=== PATIENT | male | born 1930 | race Caucasian/White ===

== ENCOUNTER 2016-11-17 03:39 | Inpatient (IN) | payer MEDICARE, BC ==
[2016-11-17] MEDS ORDERED: Ondansetron 4 MG/2 ML SDV IVPUSH ONE (03:54)
[2016-11-17] MEDS ORDERED: Sodium Chloride 0.9% 1,000 ML IV SCH ×2 (04:00→05:45)
[2016-11-17] MEDS ORDERED: Sodium Chloride 0.9% 10 ML Syringe FLUSH PRN (04:00)
[2016-11-17] MEDS ORDERED: Acetaminophen 325 MG Tab PO ONE (04:47)
[2016-11-17] MEDS ORDERED: Sodium Chloride 0.9% 500 ML IV ONE (04:50)
[2016-11-17] MEDS ORDERED: Ondansetron 4 MG Tab.DIS PO PRN ×3 (05:29→09:37)
[2016-11-17] MEDS ORDERED: Albuterol/Ipratropium 3.0-0.5 MG/3 ML Neb Soln NEB PRN (05:29)
[2016-11-17] MEDS ORDERED: Ondansetron 4 MG/2 ML SDV IV PRN (05:29)
[2016-11-17] MEDS ORDERED: Acetaminophen 325 MG Tab PO PRN (05:29)
[2016-11-17] MEDS ORDERED: Polyethylene Glycol 3350 Powder 17 GM Packet PO PRN (05:29)
[2016-11-17] MEDS ORDERED: Temazepam 15 MG Cap PO PRN (05:29)
[2016-11-17] MEDS ORDERED: Azithromycin 500 MG in Sodium Chloride 0.9% 250 ML IV SCH (06:00)
[2016-11-17] MEDS ORDERED: cefTRIAXone 1 GM AdvVial IV ONE (06:05)
[2016-11-17] MEDS ORDERED: cefTRIAXone 1,000 MG in Sodium Chloride 0.9% 50 ML IV SCH (07:00)
[2016-11-17] MEDS: cefTRIAXone 1 GM in Sodium Chloride 0.9% 50 ML IV SCH (07:14)
[2016-11-17] MEDS ORDERED: Nitroglycerin 0.4 MG Tab.SL SL PRN (08:58)
[2016-11-17] MEDS ORDERED: Fluticasone Propionate Nasal Spray 16 GM Bottle NASBOTH PRN (08:58)
[2016-11-17] MEDS ORDERED: Morphine 15 MG Tab PO PRN (08:58)
[2016-11-17] MEDS ORDERED: Apixaban 2.5 MG Tab PO SCH (09:00)
--- NOTE | 2016-11-17 09:07 | PCM.HP ---
H&P History of Present Illness - General Date of Service: 11/17/16 Admit Problem/Dx: Admission Diagnosis/Problem Admission Diagnosis/Problem Pneumonia Source of Information: Patient History Limitations: Reports: No limitations - History of Present Illness Initial Comments - Free Text/Narative: This is an 86-year-old male patient one day history of cough that's productive, chills and rigors. He denies fevers but states his said he was warm. He was brought to the ER and found to have a pneumonia in the right middle lobe. And he was admitted for IV therapy. He denies chest pain, shortness of breath, nasal congestion, sore throat, ear pain, headaches. He has a history of constipation recently. He has a very bad low back and surgeon refused to operate on it again because he had lots of complications. So he was seen in the pain clinic and put morphine. He is on a Amitza for 3 days. - Related Data Allergies/Adverse Reactions: Allergies Allergy/AdvReac Type Severity Reaction Status Date / Time acetaminophen [From Roxicet] Allergy Nausea and Verified 11/17/16 05:35 Vomiting atorvastatin Allergy Muscle Verified 11/17/16 05:35 Aches levofloxacin [From Levaquin] Allergy Hives Verified 11/17/16 05:35 oxycodone [From Roxicet] Allergy Nausea and Verified 11/17/16 05:35 Vomiting Penicillins Allergy Hives Verified 11/17/16 05:35 Home Medications: Home Meds Cholecalciferol (Vitamin D3) [Vitamin D3] 1,000 units PO DAILY 04/26/14 [History ] Multivitamin [Daily Vitamin] 1 each PO DAILY 04/26/14 [History] Fluticasone Propionate [Flonase] 1 spray NASBOTH BID PRN 10/18/15 [History] Ferrous Sulfate 325 mg PO BID 06/07/16 [History] Finasteride [Proscar] 5 mg PO DAILY 06/07/16 [History] Tamsulosin [Flomax] 0.4 mg PO DAILY 06/07/16 [History] Apixaban [Eliquis] 5 mg PO BID 06/18/16 [History] Digoxin 125 mcg PO DAILY 06/18/16 [History] Metoprolol Succinate 12.5 mg PO DAILY 06/18/16 [History] Nitroglycerin [Nitrostat] 0.4 mg SL Q5M PRN 06/18/16 [History] Pravastatin [Pravachol] 80 mg PO BEDTIME 06/18/16 [History] Docusate Sodium [Docu 50 MG/5 ML Liquid] 100 mg PO BEDTIME 11/09/16 [History] Eszopiclone [Lunesta] 2 mg PO BEDTIME 11/09/16 [History] Morphine 15 mg PO Q4H PRN 11/09/16 [History] Morphine [MS Contin] 15 mg PO BID 11/09/16 [History] Omeprazole 20 mg PO 1700 11/09/16 [History] Ondansetron [Zofran ODT] 4 mg PO TIDAC PRN 11/09/16 [History] Lubiprostone [Amitiza] 24 mcg PO BIDMEALS #60 cap 11/10/16 [Rx] Past Medical History HEENT History: Reports: Cataract, Impaired vision, Sinusitis, Other (see below) Other HEENT History: astigmatism, chronic rhinitis Cardiovascular History: Reports: Afib, CAD, Heart murmur, High cholesterol, Hypertension, ND, Stents, Other (see below) Other Cardiovascular History: aortic insufficiency, hyper lipidemia, NSTEMI Respiratory History: Reports: Pneumonia, recurrent, Other (see below) Other Respiratory History: CHACON Gastrointestinal History: Reports: Colon polyp, GERD, Other (see below) Other Gastrointestinal History: colitis, dysphagia Genitourinary History: Reports: Renal calculus, UTI, recurrent, Other (see below ) Other Genitourinary History: bladder outlet obstruction, Musculoskeletal History: Reports: Arthritis, Other (see below) Other Musculoskeletal History: lumbar stenosis, rotator cuff tear, SI joint dystruction, spondylosis of lumbar region, chronic left hip pain, DJD Neurological History: Reports: Neuropathy, peripheral, Other (see below) Other Neuro History: chronic fatigue, menieres syndrome Psychiatric History: Reports: Depression Hematologic History: Reports: Anemia, Blood transfusion(s) Dermatologic History: Reports: Other (see below) Other Dermatologic History: actinic keratosis, siborrheic keratoses - Infectious Disease History Infectious Disease History: Reports: Chicken pox, Mumps - Past Surgical History HEENT Surgical History: Reports: Eye surgery, Other (see below) Other HEENT Surgeries/Procedures: sinus surgery Cardiovascular Surgical History: Reports: Percutaneous transluminal angioplasty Respiratory Surgical History: Reports: None GI Surgical History: Reports: Colonoscopy Male Surgical History: Reports: Vasectomy Neurological Surgical History: Reports: Lumbar spine Other Neurological Surgeries/Procedures: 05/31/16 Musculoskeletal Surgical History: Reports: Shoulder surgery, Other (see below) Other Musculoskeletal Surgeries/Procedures:: back surgury 06/03/16 Social & Family History - Family History Family Medical History: Noncontributory - Tobacco Use Smoking Status *Q: Never Smoker Used Tobacco, but Quit: Yes Month Tobacco Last Used: 1950 Second Hand Smoke Exposure: No - Caffeine Use Caffeine Use: Reports: Coffee Caffeine Use Comment: 2-3cups per day - Alcohol Use Days Per Week of Alcohol Use: 7 Number of Drinks Per Day: 1 Total Drinks Per Week: 7 Time of Last Drink: 21:00 - Recreational Drug Use Recreational Drug Use: No H&P Review of Systems - Review of Systems: Review Of Systems: See Below General: Reports: chills, weakness HEENT: Reports: no symptoms Pulmonary: Reports: cough, sputum. Denies: hemoptysis Cardiovascular: Reports: no symptoms Gastrointestinal: Reports: Constipation Genitourinary: Reports: no symptoms Musculoskeletal: Reports: no symptoms Skin: Reports: no symptoms Psychiatric: Reports: no symptoms Neurological: Reports: no symptoms Hematologic/Lymphatic: Reports: no symptoms Immunologic: Reports: no symptoms Exam - Exam Exam: See Below - Vital Signs Vital Signs: Last Vital Signs Temp 97.4 F 11/17/16 06:07 Pulse 82 11/17/16 06:07 Resp 18 11/17/16 06:07 BP 129/52 L 11/17/16 06:07 Pulse Ox 92 L 11/17/16 06:07 Weight: 179 lb 6 oz - Exam General: alert, oriented, cooperative HEENT: PERRLA, Conjunctiva clear, EACs clear, EOMI, Hearing intact, Mucosa moist & pink, Posterior pharynx clear, TMs clear Neck: supple, trachea midline, 2 Lungs: Clear to auscultation, Normal respiratory effort. No: Crackles, Rales, Rhonchi, Rub Cardiovascular: regular rate, irregular rhythm. No: systolic murmur, diastolic murmur Abdomen: normal bowel sounds, soft. No: organomegaly, guarding, rigidity, rebound, tenderness Back Exam: normal inspection Extremities: normal inspection. No: edema Skin: warm, dry, intact Neurological: normal speech, normal tone Neuro Extensive - Mental Status: alert, oriented x3, normal mood/affect, normal cognition Neuro Extensive - Motor, Sensory, Reflexes: normal gait Psychiatric: alert, normal affect, normal mood - Patient Data Lab Results last 24 hrs: Laboratory Results - last 24 hr 11/17/16 Range/Units 07:20 ABG pH 7.49 H (7.35-7.45) ABG pCO2 33 L (35-45) mmHg ABG pO2 120 H (83-108) mmHg ABG HCO3 24 (22-26) mmol/L ABG O2 Saturation 99 H (96-97) % ABG Base Excess 1.5 (-2-2) Chivo Test passed O2 Delivery Device Nasal cannula Oxygen Flow Rate 2 L Result Diagrams: 11/17/16 04:05 11/17/16 04:05 Yury Results last 24 hrs: Microbiology 11/17/16 07:31 Influenza Type A Antigen Screen - Final Nasopharyngeal Swab - Nare, Right NEGATIVE INFLUENZA A VIRUS AG Influenza Type B Antigen Screen - Final NEGATIVE INFLUENZA B VIRUS AG *Q Meaningful Use (ADM) - VTE *Q VTE Criteria *Q: - Stroke *Q Stroke Criteria *Q: - AMI *Q AMI Criteria *Q: - Problem List (1) Pneumonia SNOMED Code(s): 484884685 ICD Code: J18.9 - PNEUMONIA, UNSPECIFIED ORGANISM Status: Acute Current Visit: Yes Qualifiers: Laterality: right Lung location: middle lobe of lung (2) Constipation due to opioid therapy SNOMED Code(s): 459387373787094 ICD Code: K59.03 - DRUG INDUCED CONSTIPATION; T40.2X5A - ADVERSE EFFECT OF OTHER OPIOIDS, INITIAL ENCOUNTER Status: Acute Current Visit: No (3) Elevated LFTs SNOMED Code(s): 387833087 ICD Code: R94.5 - ABNORMAL RESULTS OF LIVER FUNCTION STUDIES Status: Acute Current Visit: Yes Problem List Initiated/Reviewed/Updated: Yes Orders Last 24hrs: Active Orders 24 hr Category Date Time Status Patient Status [ADT] Routine ADT 11/17/16 05:30 Active Cardiac Monitoring [RC] CONTINUOUS Care 11/17/16 05:32 Active Oxygen Therapy [RC] PRN Care 11/17/16 05:30 Active RT Aerosol Therapy [RC] ASDIRECTED Care 11/17/16 05:35 Active Up ad Claudia [RC] ASDIRECTED Care 11/17/16 05:29 Active VTE/DVT Education [RC] Per Unit Routine Care 11/17/16 05:30 Active Vital Signs [RC] Q4H Care 11/17/16 05:30 Active Regular Diet [DIET] Diet 11/17/16 Lunch Ordered MAGNESIUM [CHEM] AM Lab 11/18/16 05:11 Ordered Acetaminophen [Tylenol] Med 11/17/16 05:29 Active 650 mg PO Q4H PRN Albuterol/Ipratropium [DuoNeb 3.0-0.5 MG/3 ML] Med 11/17/16 05:29 Active 3 ml NEB QID PRN Apixaban [Eliquis] Med 11/17/16 09:00 Ordered 5 mg PO BID Apixaban [Eliquis] Med 11/17/16 09:00 Active 5 mg PO DAILY Azithromycin [Zithromax] 500 mg Med 11/17/16 08:00 Active Sodium Chloride 0.9% [Normal Saline] 250 ml IV Q24H Digoxin [Lanoxin] Med 11/17/16 09:00 Ordered 125 mcg PO DAILY Docusate Sodium [Docu 50 MG/5 ML Liquid] Med 11/17/16 21:00 Ordered 100 mg PO BEDTIME Docusate Sodium/Sennosides [Senna Plus] Med 11/17/16 09:15 Ordered 1 tab PO DAILY Eszopiclone [Lunesta] Med 11/17/16 21:00 Ordered 2 mg PO BEDTIME Ferrous Sulfate Med 11/17/16 09:00 Ordered 325 mg PO BID Finasteride [Proscar] Med 11/17/16 09:00 Ordered 5 mg PO DAILY Fluticasone Propionate [Flonase] Med 11/17/16 08:58 Ordered 1 spray NASBOTH BID PRN Lubiprostone [Amitiza] Med 11/17/16 18:00 Ordered 24 mcg PO BIDMEALS Metoprolol Succinate [Toprol XL] Med 11/17/16 09:00 Ordered 12.5 mg PO DAILY Morphine Med 11/17/16 08:58 Ordered 15 mg PO Q4H PRN Morphine [MS Contin] Med 11/17/16 09:00 Ordered 15 mg PO BID Multivitamins [Tab-A-Bryan] Med 11/17/16 09:00 Ordered 1 each PO DAILY Nitroglycerin [Nitrostat] Med 11/17/16 08:58 Ordered 0.4 mg SL Q5M PRN Omeprazole Med 11/17/16 17:00 Ordered 20 mg PO 1700 Ondansetron [Zofran ODT] Med 11/17/16 05:29 Active 4 mg PO Q4H PRN Ondansetron [Zofran ODT] Med 11/17/16 08:58 Ordered 4 mg PO TIDAC PRN Ondansetron [Zofran] Med 11/17/16 05:29 Active 4 mg IV Q4H PRN Polyethylene Glycol 3350 [MiraLAX] Med 11/17/16 05:29 Active 17 gm PO DAILY PRN Pravastatin [Pravachol] Med 11/17/16 21:00 Ordered 80 mg PO BEDTIME Sodium Chloride 0.9% [Normal Saline] 1,000 ml Med 11/17/16 05:45 Active IV ASDIRECTED Tamsulosin [Flomax] Med 11/17/16 09:00 Ordered 0.4 mg PO DAILY Temazepam [Restoril] Med 11/17/16 05:29 Active 15 mg PO BEDTIME PRN cefTRIAXone [Rocephin] 1 gm Med 11/17/16 06:00 Active Sodium Chloride 0.9% [Normal Saline] 50 ml IV Q24H Resuscitation Status Routine Resus Stat 11/17/16 05:29 Ordered Medication Orders Acetaminophen (Tylenol) 650 mg PO Q4H PRN PRN Reason: Pain (Mild 1-3)/fever Albuterol/Ipratropium (Duoneb 3.0-0.5 Mg/3 Ml) 3 ml NEB QID PRN PRN Reason: Shortness Of Breath/wheezing Apixaban (Eliquis) 5 mg PO DAILY [facility] Digoxin (Lanoxin) 125 mcg PO DAILY [facility] Docusate Sodium (Docu 50 Mg/5 Ml Liquid) 100 mg PO BEDTIME [facility] Ferrous Sulfate (Ferrous Sulfate) 325 mg PO BID [facility] Finasteride (Proscar) 5 mg PO DAILY [facility] Fluticasone Propionate (Flonase) gm NASBOTH BID PRN PRN Reason: ALLERGIES/CONGESTION Sodium Chloride (Normal Saline) 1,000 mls @ 125 mls/hr IV ASDIRECTED ROSALIE Last Admin: 11/17/16 06:17 Dose: 150 mls/hr Azithromycin 500 mg/ Sodium (Chloride) 250 mls @ 250 mls/hr IV Q24H [facility] Ceftriaxone Sodium 1 gm/ (Sodium Chloride) 50 mls @ 100 mls/hr IV Q24H [facility] Last Admin: 11/17/16 07:14 Dose: Not Given Lubiprostone (Amitiza) 24 mcg PO BIDMEALS [facility] Metoprolol Succinate (Toprol Xl) 12.5 mg PO DAILY [facility] Morphine Sulfate (Ms Contin) 15 mg PO BID [facility] Morphine Sulfate (Morphine) 15 mg PO Q4H PRN PRN Reason: Pain Multivitamins/Minerals/Vitamin C (Tab-A-Bryan) tab PO DAILY [facility] Nitroglycerin (Nitrostat) 0.4 mg SL Q5M PRN PRN Reason: Chest Pain Non-Formulary Medication (Apixaban [Eliquis]) 5 mg PO BID [facility] Non-Formulary Medication (Eszopiclone [Lunesta]) 2 mg PO BEDTIME [facility] Omeprazole (Omeprazole) 20 mg PO 1700 [facility] Ondansetron HCl (Zofran Odt) 4 mg PO Q4H PRN PRN Reason: nausea, able to take PO Ondansetron HCl (Zofran) 4 mg IV Q4H PRN PRN Reason: Nausea/Vomiting Ondansetron HCl (Zofran Odt) 4 mg PO TIDAC PRN PRN Reason: Nausea Polyethylene Glycol (Miralax) 17 gm PO DAILY PRN PRN Reason: Constipation Pravastatin Sodium (Pravachol) 80 mg PO BEDTIME [facility] Sodium Chloride (Saline Flush) 10 ml FLUSH ASDIRECTED PRN PRN Reason: Keep Vein Open Tamsulosin HCl (Flomax) 0.4 mg PO DAILY [facility] Temazepam (Restoril) 15 mg PO BEDTIME PRN PRN Reason: Sleep Assessment/Plan Comment:: 1. Admit. 2. Discussed CODE STATUS they last a full code unless there is no hope. 3. Rocephin and Zithromax. 4. Up ad claudia. 5. Regular diet. 6. Atrial fib is under control so continue eloquence can stop telemetry. 7. Discuss workup for LFTs for the patient.
[2016-11-17] MEDS: Ferrous Sulfate 325 MG Tab PO SCH ×2 (09:44→20:58)
[2016-11-17] MEDS: Metoprolol Succinate 25 MG Tab.ER PO SCH (09:44)
[2016-11-17] MEDS: Multivitamin Tab PO SCH (09:44)
[2016-11-17] MEDS: Morphine 15 MG Tab.ER PO SCH ×2 (09:44→20:58)
[2016-11-17] MEDS: Finasteride 5 MG Tab PO SCH (09:44)
[2016-11-17] MEDS: Digoxin 125 MCG Tab PO SCH (09:45)
[2016-11-17] MEDS: Tamsulosin 0.4 MG Cap.ER PO SCH (09:45)
[2016-11-17] MEDS: Azithromycin 500 MG in Sodium Chloride 0.9% 250 ML IV SCH (10:07)
[2016-11-17] MEDS: Apixaban 5 MG Tab PO SCH ×2 (11:31→20:58)
[2016-11-17] MEDS ORDERED: Bisacodyl 10 MG Supp RECTAL PRN (12:00)
[2016-11-17] MEDS ORDERED: Omeprazole 20 MG Cap.CR PO SCH (17:00)
[2016-11-17] MEDS: Lubiprostone 24 MCG Cap PO SCH (17:44)
[2016-11-17] MEDS ORDERED: ESZOPICLONE 2 MG PO SCH (21:00)
[2016-11-17] MEDS ORDERED: Docusate Sodium 100 MG Cap PO SCH (21:00)
[2016-11-17] MEDS ORDERED: Simvastatin 40 MG Tab PO SCH (21:00)
[2016-11-18] MEDS: cefTRIAXone 1 GM in Sodium Chloride 0.9% 50 ML IV SCH (05:58)
[2016-11-18] MEDS: Azithromycin 500 MG in Sodium Chloride 0.9% 250 ML IV SCH (08:04)
[2016-11-18] MEDS: Lubiprostone 24 MCG Cap PO SCH (08:08)
--- NOTE | 2016-11-18 08:10 | PCM.PN ---
- General Info Date of Service: 11/18/16 Admission Dx/Problem (Free Text): Patient was without complaints. He denies cough, shortness of breath, weakness , dizziness, fevers, chills, riders. There's a report that his oxygen is about 90% during the day and goes to about 88% at night. - Patient Data Vitals - most recent: Last Vital Signs Temp 96.8 F 11/18/16 08:00 Pulse 71 11/18/16 08:00 Resp 18 11/18/16 08:00 BP 117/58 L 11/18/16 08:00 Pulse Ox 94 L 11/18/16 08:00 Weight - most recent: 179 lb 6 oz I&O - last 24 hours: Intake & Output 11/17/16 11/18/16 11/18/16 22:59 06:59 14:59 Intake Total 317 55 Balance 317 55 Lab Results last 24 hrs: Laboratory Results - last 24 hr 11/18/16 11/18/16 11/18/16 Range/Units 06:55 06:55 06:55 WBC 8.2 (4.5-12.0) X10-3/uL RBC 3.38 L (4.30-5.75) x10(6)uL Hgb 10.0 L (11.5-15.5) g/dL Hct 31.1 (30.0-51.3) % MCV 92.0 (80-96) fL MCH 29.5 (27.7-33.6) pg MCHC 32.1 L (32.2-35.4) g/dL RDW 12.8 (11.5-15.5) % Plt Count 139 (125-369) X10(3)uL MPV 9.8 (7.4-10.4) fL Neut % (Auto) 64.1 (46-82) % Lymph % (Auto) 24.6 (13-37) % [place] % (Auto) 9.1 (4-12) % Eos % (Auto) 2 (1.0-5.0) % Baso % (Auto) 0 (0-2) % Neut # 5.3 (1.6-8.3) # Lymph # 2.0 (0.6-5.0) # [place] # 0.7 (0.0-1.3) # Eos # 0.2 (0.0-0.8) # Baso # 0.0 (0.0-0.2) # Sodium 137 (135-145) mmol/L Potassium 3.8 (3.5-5.3) mmol/L Chloride 102 (100-110) mmol/L Carbon Dioxide 29 (23-29) mmol/L BUN 19 D (8-23) mg/dL Creatinine 0.8 (0.6-1.3) mg/dL Est Cr Clr Drug Dosing 66.28 mL/min Estimated GFR (MDRD) > 60 (>60) BUN/Creatinine Ratio 23.8 H (9-20) Glucose 105 (80-116) mg/dL Calcium 7.9 L (8.6-10.2) mg/dL Magnesium 1.7 L (1.8-2.5) mg/dL Total Bilirubin 1.1 (0.1-1.3) mg/dL AST 21 D (5-27) IU/L ALT 20 D (14-26) IU/L Alkaline Phosphatase 66 (56-112) IU/L Total Protein 5.6 L (6.0-8.0) g/dL Albumin 2.8 L (3.2-4.6) g/dL Globulin 2.8 g/dL Albumin/Globulin Ratio 1.0 Yury Results last 24 hrs: Microbiology 11/17/16 07:31 Influenza Type A Antigen Screen - Final Nasopharyngeal Swab - Nare, Right NEGATIVE INFLUENZA A VIRUS AG Influenza Type B Antigen Screen - Final NEGATIVE INFLUENZA B VIRUS AG Med Orders - Current: Current Medications Acetaminophen (Tylenol) 650 mg PO Q4H PRN PRN Reason: Pain (Mild 1-3)/fever Albuterol/Ipratropium (Duoneb 3.0-0.5 Mg/3 Ml) 3 ml NEB QID PRN PRN Reason: Shortness Of Breath/wheezing Last Admin: 11/17/16 14:57 Dose: 3 ml Apixaban (Eliquis) 5 mg PO BID [facility] Last Admin: 11/17/16 20:58 Dose: 5 mg Bisacodyl (Dulcolax) 10 mg RECTAL DAILY PRN PRN Reason: Constipation Digoxin (Lanoxin) 125 mcg PO DAILY [facility] Last Admin: 11/17/16 09:45 Dose: 125 mcg Docusate Sodium (Colace) 100 mg PO BEDTIME [facility] Last Admin: 11/17/16 20:58 Dose: 100 mg Ferrous Sulfate (Ferrous Sulfate) 325 mg PO BID [facility] Last Admin: 11/17/16 20:58 Dose: 325 mg Finasteride (Proscar) 5 mg PO DAILY [facility] Last Admin: 11/17/16 09:44 Dose: 5 mg Fluticasone Propionate (Flonase) 0 gm NASBOTH BID PRN PRN Reason: ALLERGIES/CONGESTION Azithromycin 500 mg/ Sodium (Chloride) 250 mls @ 250 mls/hr IV Q24H [facility] Last Admin: 11/18/16 08:04 Dose: 250 mls/hr Ceftriaxone Sodium 1 gm/ (Sodium Chloride) 50 mls @ 100 mls/hr IV Q24H [facility] Last Admin: 11/18/16 05:58 Dose: 100 mls/hr Lubiprostone (Amitiza) 24 mcg PO BIDMEALS [facility] Last Admin: 11/17/16 17:44 Dose: 24 mcg Metoprolol Succinate (Toprol Xl) 12.5 mg PO DAILY [facility] Last Admin: 11/17/16 09:44 Dose: 12.5 mg Morphine Sulfate (Ms Contin) 15 mg PO BID [facility] Last Admin: 11/17/16 20:58 Dose: 15 mg Morphine Sulfate (Morphine) 15 mg PO Q4H PRN PRN Reason: Pain Multivitamins/Minerals/Vitamin C (Tab-A-Bryan) 1 tab PO DAILY [facility] Last Admin: 11/17/16 09:44 Dose: 1 tab Nitroglycerin (Nitrostat) 0.4 mg SL Q5M PRN PRN Reason: Chest Pain Omeprazole (Omeprazole) 20 mg PO DAILY@1700 [facility] Last Admin: 11/17/16 17:44 Dose: 20 mg Ondansetron HCl (Zofran) 4 mg IV Q4H PRN PRN Reason: Nausea/Vomiting Ondansetron HCl (Zofran Odt) 4 mg PO TIDAC PRN PRN Reason: Nausea Polyethylene Glycol (Miralax) 17 gm PO DAILY PRN PRN Reason: Constipation Senna/Docusate Sodium (Senna Plus) 1 tab PO DAILY [facility] Last Admin: 11/17/16 09:45 Dose: 1 tab Simvastatin (Zocor) 40 mg PO BEDTIME [facility] Last Admin: 11/17/16 20:58 Dose: 40 mg Tamsulosin HCl (Flomax) 0.4 mg PO DAILY [facility] Last Admin: 11/17/16 09:45 Dose: 0.4 mg Temazepam (Restoril) 15 mg PO BEDTIME PRN PRN Reason: Sleep Last Admin: 11/17/16 20:57 Dose: 15 mg Discontinued Medications Acetaminophen (Tylenol) 975 mg PO NOW ONE Stop: 11/17/16 04:48 Last Admin: 11/17/16 05:04 Dose: 975 mg Apixaban (Eliquis) 5 mg PO DAILY [facility] Last Admin: 11/17/16 09:36 Dose: Not Given Ceftriaxone Sodium (Rocephin) Confirm Administered Dose 1 gm IV .STK-MED ONE Stop: 11/17/16 06:06 Last Admin: 11/17/16 06:12 Dose: 1 gm Sodium Chloride (Normal Saline) 1,000 mls @ 500 mls/hr IV ASDIRECTED [facility] Last Admin: 11/17/16 04:07 Dose: 500 mls/hr Sodium Chloride (Normal Saline) 500 mls @ 600 mls/hr IV .BOLUS ONE Stop: 11/17/16 05:39 Last Admin: 11/17/16 07:26 Dose: Not Given Sodium Chloride (Normal Saline) 1,000 mls @ 125 mls/hr IV ASDIRECTED [facility] Stop: 11/17/16 16:45 Last Admin: 11/17/16 06:17 Dose: 150 mls/hr Non-Formulary Medication (Eszopiclone [Lunesta]) 2 mg PO BEDTIME [facility] Ondansetron HCl (Zofran) 4 mg IVPUSH ONETIME ONE Stop: 11/17/16 03:55 Last Admin: 11/17/16 04:09 Dose: 4 mg Ondansetron HCl (Zofran Odt) 4 mg PO Q4H PRN PRN Reason: nausea, able to take PO Ondansetron HCl (Zofran Odt) 4 mg PO TIDAC PRN PRN Reason: Nausea Sodium Chloride (Saline Flush) 10 ml FLUSH ASDIRECTED PRN PRN Reason: Keep Vein Open - Exam General: alert, oriented, cooperative Neck: supple Lungs: Clear to auscultation, Normal respiratory effort. No: Crackles, Rales, Rhonchi Cardiovascular: regular rate, regular rhythm. No: no murmurs Extremities: no edema - Problem List & Annotations (1) Pneumonia SNOMED Code(s): 821669914 Code(s): J18.9 - PNEUMONIA, UNSPECIFIED ORGANISM Status: Acute Current Visit: Yes Qualifiers: Laterality: right Lung location: middle lobe of lung (2) Constipation due to opioid therapy SNOMED Code(s): 601260245720405 Code(s): K59.03 - DRUG INDUCED CONSTIPATION; T40.2X5A - ADVERSE EFFECT OF OTHER OPIOIDS, INITIAL ENCOUNTER Status: Acute Current Visit: No (3) Elevated LFTs SNOMED Code(s): 604528681 Code(s): R94.5 - ABNORMAL RESULTS OF LIVER FUNCTION STUDIES Status: Acute Current Visit: Yes - Problem List Review Problem List Initiated/Reviewed/Updated: Yes - My Orders Last 24 Hours: My Active Orders 11/17/16 08:58 Fluticasone Propionate [Flonase] 0 gm NASBOTH BID PRN Morphine 15 mg PO Q4H PRN Nitroglycerin [Nitrostat] 0.4 mg SL Q5M PRN 11/17/16 09:00 Apixaban [Eliquis] 5 mg PO BID Digoxin [Lanoxin] 125 mcg PO DAILY Ferrous Sulfate 325 mg PO BID Finasteride [Proscar] 5 mg PO DAILY Metoprolol Succinate [Toprol XL] 12.5 mg PO DAILY Morphine [MS Contin] 15 mg PO BID Multivitamins [Tab-A-Bryan] 1 tab PO DAILY Tamsulosin [Flomax] 0.4 mg PO DAILY 11/17/16 09:15 Docusate Sodium/Sennosides [Senna Plus] 1 tab PO DAILY 11/17/16 09:37 Ondansetron [Zofran ODT] 4 mg PO TIDAC PRN 11/17/16 12:00 Bisacodyl [Dulcolax] 10 mg RECTAL DAILY PRN 11/17/16 16:45 Convert IV to Saline Lock [OM.PC] Routine 11/17/16 16:50 Convert IV to Saline Lock [OM.PC] Routine 11/17/16 17:00 Omeprazole 20 mg PO DAILY@1700 11/17/16 18:00 Lubiprostone [Amitiza] 24 mcg PO BIDMEALS 11/17/16 21:00 Docusate Sodium [Colace] 100 mg PO BEDTIME Simvastatin [Zocor] 40 mg PO BEDTIME 11/17/16 Lunch Regular Diet [DIET] 11/18/16 05:41 Oxygen Therapy [RC] ASDIRECTED - Plan Plan:: 1. discharge to home. 2. Zithromax and doxycycline home meds. 3. Recheck in 2 weeks with CBC, Chem-12 before the appointment.
--- NOTE | 2016-11-18 08:21 | PCM.DCSUM1 ---
Discharge Summary - Hospital Course Free Text/Narrative:: Hospital course-patient was admitted placed on Rocephin and Zithromax IV. By the next day he had no chills or rigers. He required a little oxygen at night because his O2 went to about 80%. During the day he was over 91% and higher. No cuff, no shortness of breath or chest pain. His white count went down the next day his LFTs were somewhat elevated. LFTs were not investigated at this visit. Brief History: This is an 86-year-old male patient one day history of cough that 's productive, chills and rigors. He denies fevers but states his said he was warm. He was brought to the ER and found to have a pneumonia in the right middle lobe. And he was admitted for IV therapy. He denies chest pain, shortness of breath, nasal congestion, sore throat, ear pain, headaches. He has a history of constipation recently. He has a very bad low back and surgeon refused to operate on it again because he had lots of complications. So he was seen in the pain clinic and put morphine. He is on a Amitza for 3 days. - Discharge Data Discharge Date: 11/18/16 Discharge Disposition: Home, Self-Care 01 Condition: Good - Discharge Diagnosis/Problem(s) (1) Pneumonia SNOMED Code(s): 837022398 ICD Code: J18.9 - PNEUMONIA, UNSPECIFIED ORGANISM Status: Acute Current Visit: Yes Qualifiers: Laterality: right Lung location: middle lobe of lung (2) Constipation due to opioid therapy SNOMED Code(s): 057169147456949 ICD Code: K59.03 - DRUG INDUCED CONSTIPATION; T40.2X5A - ADVERSE EFFECT OF OTHER OPIOIDS, INITIAL ENCOUNTER Status: Acute Current Visit: No (3) Elevated LFTs SNOMED Code(s): 275452032 ICD Code: R94.5 - ABNORMAL RESULTS OF LIVER FUNCTION STUDIES Status: Acute Current Visit: Yes - Patient Summary/Data Operative Procedure(s) Performed: c scope with bx - Patient Instructions Diet: Regular Diet as Tolerated Activity: As Tolerated Driving: May Drive Today Showering/Bathing: May Shower Notify Provider of: Fever Other/Special Instructions: 1. Recheck with Dr. Adkins in 2 weeks. 2. CBC and Chem-12 before the appointment in 2 weeks. - Discharge Plan Prescriptions/Med Rec: Azithromycin [Zithromax] 250 mg PO DAILY #3 tablet Doxycycline [Vibramycin] 100 mg PO BID #20 cap Sennosides/Docusate Sodium [Senna-S] 1 each PO DAILY #30 tablet Home Medications: Home Meds Cholecalciferol (Vitamin D3) [Vitamin D3] 1,000 units PO DAILY 04/26/14 [History ] Multivitamin [Daily Vitamin] 1 each PO DAILY 04/26/14 [History] Fluticasone Propionate [Flonase] 1 spray NASBOTH BID PRN 10/18/15 [History] Ferrous Sulfate 325 mg PO BID 06/07/16 [History] Finasteride [Proscar] 5 mg PO DAILY 06/07/16 [History] Tamsulosin [Flomax] 0.4 mg PO DAILY 06/07/16 [History] Apixaban [Eliquis] 5 mg PO BID 06/18/16 [History] Digoxin 125 mcg PO DAILY 06/18/16 [History] Metoprolol Succinate 12.5 mg PO DAILY 06/18/16 [History] Nitroglycerin [Nitrostat] 0.4 mg SL Q5M PRN 06/18/16 [History] Pravastatin [Pravachol] 80 mg PO BEDTIME 06/18/16 [History] Docusate Sodium [Docu 50 MG/5 ML Liquid] 100 mg PO BEDTIME 11/09/16 [History] Eszopiclone [Lunesta] 2 mg PO BEDTIME 11/09/16 [History] Morphine 15 mg PO Q4H PRN 11/09/16 [History] Morphine [MS Contin] 15 mg PO BID 11/09/16 [History] Omeprazole 20 mg PO 1700 11/09/16 [History] Ondansetron [Zofran ODT] 4 mg PO TIDAC PRN 11/09/16 [History] Lubiprostone [Amitiza] 24 mcg PO BIDMEALS #60 cap 11/10/16 [Rx] Azithromycin [Zithromax] 250 mg PO DAILY #3 tablet 11/18/16 [Rx] Doxycycline [Vibramycin] 100 mg PO BID #20 cap 11/18/16 [Rx] Sennosides/Docusate Sodium [Senna-S] 1 each PO DAILY #30 tablet 11/18/16 [Rx] Forms: ED Department Discharge Referrals: Stew Adkins MD [Primary Care Provider] - - Discharge Summary/Plan Comment DC Time >30 min.: No - Patient Data Vitals - Most Recent: Last Vital Signs Temp 96.8 F 11/18/16 08:00 Pulse 71 11/18/16 08:00 Resp 18 11/18/16 08:00 BP 117/58 L 11/18/16 08:00 Pulse Ox 94 L 11/18/16 08:00 Weight - Most Recent: 179 lb 6 oz I&O - Last 24 hours: Intake & Output 11/17/16 11/18/16 11/18/16 22:59 06:59 14:59 Intake Total 317 55 Balance 317 55 Lab Results - Last 24 hrs: Laboratory Results - last 24 hr 11/18/16 11/18/16 11/18/16 Range/Units 06:55 06:55 06:55 WBC 8.2 (4.5-12.0) X10-3/uL RBC 3.38 L (4.30-5.75) x10(6)uL Hgb 10.0 L (11.5-15.5) g/dL Hct 31.1 (30.0-51.3) % MCV 92.0 (80-96) fL MCH 29.5 (27.7-33.6) pg MCHC 32.1 L (32.2-35.4) g/dL RDW 12.8 (11.5-15.5) % Plt Count 139 (125-369) X10(3)uL MPV 9.8 (7.4-10.4) fL Neut % (Auto) 64.1 (46-82) % Lymph % (Auto) 24.6 (13-37) % Schley % (Auto) 9.1 (4-12) % Eos % (Auto) 2 (1.0-5.0) % Baso % (Auto) 0 (0-2) % Neut # 5.3 (1.6-8.3) # Lymph # 2.0 (0.6-5.0) # Schley # 0.7 (0.0-1.3) # Eos # 0.2 (0.0-0.8) # Baso # 0.0 (0.0-0.2) # Sodium 137 (135-145) mmol/L Potassium 3.8 (3.5-5.3) mmol/L Chloride 102 (100-110) mmol/L Carbon Dioxide 29 (23-29) mmol/L BUN 19 D (8-23) mg/dL Creatinine 0.8 (0.6-1.3) mg/dL Est Cr Clr Drug Dosing 66.28 mL/min Estimated GFR (MDRD) > 60 (>60) BUN/Creatinine Ratio 23.8 H (9-20) Glucose 105 (80-116) mg/dL Calcium 7.9 L (8.6-10.2) mg/dL Magnesium 1.7 L (1.8-2.5) mg/dL Total Bilirubin 1.1 (0.1-1.3) mg/dL AST 21 D (5-27) IU/L ALT 20 D (14-26) IU/L Alkaline Phosphatase 66 (56-112) IU/L Total Protein 5.6 L (6.0-8.0) g/dL Albumin 2.8 L (3.2-4.6) g/dL Globulin 2.8 g/dL Albumin/Globulin Ratio 1.0 ZOHREH Results - Last 24 hrs: Microbiology 11/17/16 07:31 Influenza Type A Antigen Screen - Final Nasopharyngeal Swab - Nare, Right NEGATIVE INFLUENZA A VIRUS AG Influenza Type B Antigen Screen - Final NEGATIVE INFLUENZA B VIRUS AG Med Orders - Current: Current Medications Acetaminophen (Tylenol) 650 mg PO Q4H PRN PRN Reason: Pain (Mild 1-3)/fever Albuterol/Ipratropium (Duoneb 3.0-0.5 Mg/3 Ml) 3 ml NEB QID PRN PRN Reason: Shortness Of Breath/wheezing Last Admin: 11/17/16 14:57 Dose: 3 ml Apixaban (Eliquis) 5 mg PO BID [facility] Last Admin: 11/17/16 20:58 Dose: 5 mg Bisacodyl (Dulcolax) 10 mg RECTAL DAILY PRN PRN Reason: Constipation Digoxin (Lanoxin) 125 mcg PO DAILY [facility] Last Admin: 11/17/16 09:45 Dose: 125 mcg Docusate Sodium (Colace) 100 mg PO BEDTIME [facility] Last Admin: 11/17/16 20:58 Dose: 100 mg Ferrous Sulfate (Ferrous Sulfate) 325 mg PO BID [facility] Last Admin: 11/17/16 20:58 Dose: 325 mg Finasteride (Proscar) 5 mg PO DAILY [facility] Last Admin: 11/17/16 09:44 Dose: 5 mg Fluticasone Propionate (Flonase) 0 gm NASBOTH BID PRN PRN Reason: ALLERGIES/CONGESTION Azithromycin 500 mg/ Sodium (Chloride) 250 mls @ 250 mls/hr IV Q24H [facility] Last Admin: 11/18/16 08:04 Dose: 250 mls/hr Ceftriaxone Sodium 1 gm/ (Sodium Chloride) 50 mls @ 100 mls/hr IV Q24H [facility] Last Admin: 11/18/16 05:58 Dose: 100 mls/hr Lubiprostone (Amitiza) 24 mcg PO BIDMEALS [facility] Last Admin: 11/18/16 08:08 Dose: 24 mcg Metoprolol Succinate (Toprol Xl) 12.5 mg PO DAILY [facility] Last Admin: 11/17/16 09:44 Dose: 12.5 mg Morphine Sulfate (Ms Contin) 15 mg PO BID [facility] Last Admin: 11/17/16 20:58 Dose: 15 mg Morphine Sulfate (Morphine) 15 mg PO Q4H PRN PRN Reason: Pain Multivitamins/Minerals/Vitamin C (Tab-A-Bryan) 1 tab PO DAILY [facility] Last Admin: 11/17/16 09:44 Dose: 1 tab Nitroglycerin (Nitrostat) 0.4 mg SL Q5M PRN PRN Reason: Chest Pain Omeprazole (Omeprazole) 20 mg PO DAILY@1700 [facility] Last Admin: 11/17/16 17:44 Dose: 20 mg Ondansetron HCl (Zofran) 4 mg IV Q4H PRN PRN Reason: Nausea/Vomiting Ondansetron HCl (Zofran Odt) 4 mg PO TIDAC PRN PRN Reason: Nausea Polyethylene Glycol (Miralax) 17 gm PO DAILY PRN PRN Reason: Constipation Senna/Docusate Sodium (Senna Plus) 1 tab PO DAILY [facility] Last Admin: 11/17/16 09:45 Dose: 1 tab Simvastatin (Zocor) 40 mg PO BEDTIME [facility] Last Admin: 11/17/16 20:58 Dose: 40 mg Tamsulosin HCl (Flomax) 0.4 mg PO DAILY [facility] Last Admin: 11/17/16 09:45 Dose: 0.4 mg Temazepam (Restoril) 15 mg PO BEDTIME PRN PRN Reason: Sleep Last Admin: 11/17/16 20:57 Dose: 15 mg Discontinued Medications Acetaminophen (Tylenol) 975 mg PO NOW ONE Stop: 11/17/16 04:48 Last Admin: 11/17/16 05:04 Dose: 975 mg Apixaban (Eliquis) 5 mg PO DAILY [facility] Last Admin: 11/17/16 09:36 Dose: Not Given Ceftriaxone Sodium (Rocephin) Confirm Administered Dose 1 gm IV .STK-MED ONE Stop: 11/17/16 06:06 Last Admin: 11/17/16 06:12 Dose: 1 gm Sodium Chloride (Normal Saline) 1,000 mls @ 500 mls/hr IV ASDIRECTED [facility] Last Admin: 11/17/16 04:07 Dose: 500 mls/hr Sodium Chloride (Normal Saline) 500 mls @ 600 mls/hr IV .BOLUS ONE Stop: 11/17/16 05:39 Last Admin: 11/17/16 07:26 Dose: Not Given Sodium Chloride (Normal Saline) 1,000 mls @ 125 mls/hr IV ASDIRECTED [facility] Stop: 11/17/16 16:45 Last Admin: 11/17/16 06:17 Dose: 150 mls/hr Non-Formulary Medication (Eszopiclone [Lunesta]) 2 mg PO BEDTIME [facility] Ondansetron HCl (Zofran) 4 mg IVPUSH ONETIME ONE Stop: 11/17/16 03:55 Last Admin: 11/17/16 04:09 Dose: 4 mg Ondansetron HCl (Zofran Odt) 4 mg PO Q4H PRN PRN Reason: nausea, able to take PO Ondansetron HCl (Zofran Odt) 4 mg PO TIDAC PRN PRN Reason: Nausea Sodium Chloride (Saline Flush) 10 ml FLUSH ASDIRECTED PRN PRN Reason: Keep Vein Open *Q Meaningful Use (DIS) - VTE *Q VTE Criteria *Q: - Stroke *Q Stroke Criteria *Q: - AMI *Q AMI Criteria *Q:
--- NOTE | 2016-11-18 09:00 | CR ---
INDICATION: Tachycardia, vomiting, question DC. CHEST: AP view of the chest, obtained portable upright 11/17/2016, compared with 11/08/2016, now reveals an infiltrate perihilar on the right, which is compatible with pneumonia. The possibility of aspiration pneumonia would certainly be a consideration with this appearance. There does also appear to be some patchy infiltrate at the right lung base. It is difficult to exclude some minimal infiltrate posteriorly at the left lung base. The heart appeared enlarged. The aorta is somewhat tortuous. Overlying EKG leads are noted. IMPRESSION: Findings suggest pneumonia on the right, most prominently perihilar - suprahilar and likely in the upper lobe, possibly on the basis of aspiration pneumonia with some infiltrate also seen at the right lung base. MTDD
[2016-11-18] MEDS: Metoprolol Succinate 25 MG Tab.ER PO SCH (09:26)
[2016-11-18] MEDS: Ferrous Sulfate 325 MG Tab PO SCH (09:28)
[2016-11-18] MEDS: Tamsulosin 0.4 MG Cap.ER PO SCH (09:28)
[2016-11-18] MEDS: Digoxin 125 MCG Tab PO SCH (09:28)
[2016-11-18] MEDS: Apixaban 5 MG Tab PO SCH (09:28)
[2016-11-18] MEDS: Finasteride 5 MG Tab PO SCH (09:28)
[2016-11-18] MEDS: Multivitamin Tab PO SCH (09:28)
[2016-11-18] MEDS: Morphine 15 MG Tab.ER PO SCH (09:33)
[2016-11-18 09:34] VITALS: BP 107/67
--- NOTE | 2016-11-18 14:21 | ER ---
DATE SEEN: 11/17/2016 TIME SEEN: The patient was seen at 0458 hours. CHIEF COMPLAINT: Vomiting, "freezing on and off." HISTORY OF PRESENT ILLNESS: He has had pneumonia in the past, wonders if he has recurrence of pneumonia. No chest pain. No diarrhea or vomiting. Past medical history of coronary artery disease, previous back surgery, atrial fibrillation, anemia, hypertension, constipation due to opiate therapy. He also thought he was having recurrence of constipation, as he was seen by Dr. Wolff last week and noted to have constipation and multiple therapeutic interventions did not resolve the constipation: enemas and MiraLAX. Eventually, he had a bowel movement. He has been placed on new medication called lubiprostone 25 mcg b.i.d. after meals. He complains it is quite expensive, 400 dollars "and does not work." He had bowel movement today. Other past medical history: 06/07/14L3-L5 decompression fusion. On 10/31/2016 he was seen by his back surgeon Dr. Roberts at [place]. Dr Roberts's note: 5/5 strength in iliopsoas, quadriceps, hamstrings, tibialis anterior, gastrocnemius, extensor hallucis longus bilaterally. Intact sensation to light touch to the lower extremities and 1+ patellar and Achilles reflexes. At that time, the MRI and CT were reviewed and demonstrated postop changes at L3-L5 with haloing of the L5 screws. 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 He was felt to be a poor surgical candidate and was told he would not survive recovery from the procedure, because of his past medical history of myocardial infarction, pneumonia, urinary tract infection, and congestive heart failure. The patient wanted Dr. Roberts to be aggressive and have the surgery done. Dr. Roberts was very hesitant to proceed, as Mr. Garzon is a high risk patient. He was given a prescription for oxycodone and planned symptomatic management. PAST MEDICAL HISTORY: History of myocardial infarction, pneumonia, urinary tract infection, respiratory hypoxia, congestive heart failure (as noted above by Dr. Roberts). MEDICATIONS: 1. Ferrous sulfate. 2. Lunesta. 3. Docusate liquid 50 mg/5 mL. 4. Digoxin. 5. Vitamin D3. 6. Eliquis. 7. Tamsulosin. 8. Pravastatin. 9. Zofran. 10.Omeprazole. 11.Nitroglycerin p.r.n. 12.Nitrostat. 13.Morphine. 14.MS Contin 15 mg b.i.d. 15.Morphine 15 mg q.4 hours p.r.n. 16.Metoprolol succinate 12.5 mg daily. 17.Lubiprostone 24 mcg p.o. with meals. 18.Flonase. 19.Finasteride 5 mg daily. ALLERGIES: Nausea from Roxicet. Atorvastatin, muscle aches. Levofloxacin, hives. Oxycodone, nausea and vomiting. Penicillin allergies with hives. REVIEW OF SYSTEMS: Otherwise negative except as noted above. PHYSICAL EXAMINATION: VITAL SIGNS: Blood pressure 132/77, heart rate 132, respirations 29, oxygen saturation 85% on room air, temperature 39.7 degrees centigrade. GENERAL: The patient on arrival was warm. He was vomiting. There is a mild blood tinge to the vomitus. He is not in extremis, but is very much uncomfortable from the vomiting. The vomiting gradually relented. The patient was hydrated with fluids. HEENT: TMs negative. Pharynx without abnormality. LUNGS: There are few rales in lungs, right side compared to the left side. HEART: S1 and S2. No murmur. Regular rate and rhythm. ABDOMEN: Soft. No guarding. Mild midepigastric abdominal discomfort. No CVA percussion tenderness. He has previous low back surgery. No scars noted. No erythema. There is mild tenderness. EXTREMITIES: I did not perform a straight leg raise. Deep tendon reflexes, knee jerks, ankle jerks are present. No dysesthesia in lower extremities or hypoesthesia. LABORATORY FINDINGS: White count elevated at 13,000 with PMNs 85, lymphocytes 6, hemoglobin 11.4, red blood cell count is 3.81. D-dimer 860. ABGs: 7.49 pH, pCO2 of 33, bicarbonate 24, oxygen saturation is 99, PO2 is 120. Sodium 133, chloride 99, potassium 3.9, BUN 30, creatinine 1.0. BUN and creatinine ratio is 30 (reflects dehydration), glucose mildly elevated at 153, total bilirubin 1.8, elevated AST 43, ALT 30. Urinalysis; rare bacteria, few calcium oxalate crystals, urobilinogen 4, small bilirubin. Chest x-ray reveals an infiltrate in lungs, right hilar region. This was absent on previous chest x-ray. ASSESSMENT: 1. Pneumonia. With the patient's allergies to fluoroquinolones and penicillin, the patient was placed on azithromycin plus Rocephin. If necessary, that can be changed to a stronger agent later on. It is possible he has experienced aspiration. 2. Chronic back pain with haloing of his pedicle screws. He needs larger screws, but he is at surgical risk and Dr. Roberts, his back surgeon, is reluctant to perform further surgery because he is high risk with previous myocardial infarction. 3. Past history of myocardial infarction. 4. Renal abnormality history. Presently, his creatinine is normal at 1.0. Estimated GFR greater than 60. So, he does not have any sign of a new acute renal injury. 5. Previous documented stenosis, lower back. His said she had the same. 6. History of constipation secondary to narcotic use for his low back pain and is getting expensive lubiprostone medicine, which today "has not worked". 7. Anticoagulation with Eliquis 5 mg a day. 8. Dyslipidemia. 9. Coronary artery disease. 10.Multiple allergies to antibiotics, penicillin, and fluoroquinolones. /[id number] ANAM/LORENZO HUANG
--- NOTE | 2016-12-02 05:44 | ER ---
DATE SEEN: 11/17/2016 LABORATORY RESULTS: Magnesium low at 1.7 (1.8-2.5). Also respiratory alkalosis, pH 7.49, CO2 of 33, O2 of 120, and oxygen saturation 99%. /[id number] LS/MODL
== END 2016-11-18 10:16 | disposition home or self-care (01) | DRG 195 ==
LOC: FB.ED 03:39 → FB.MS 05:24
PROVIDERS: ADMIT Emergency Medicine; ATTEND Family Medicine
DX: J18.9 Pneumonia, unspecified organism (principal); K59.03 Drug induced constipation; T40.2X5A Adverse effect of other opioids, initial encounter; R94.5 Abnormal results of liver function studies; I25.10 Atherosclerotic heart disease of native coronary artery without angina pectoris; Z79.01 Long term (current) use of anticoagulants; M54.5 Low back pain; G89.29 Other chronic pain; I48.2 Chronic atrial fibrillation; E78.5 Hyperlipidemia, unspecified; I10 Essential (primary) hypertension; I25.2 Old myocardial infarction; K21.9 Gastro-esophageal reflux disease without esophagitis; Z95.5 Presence of coronary angioplasty implant and graft; F32.9 Major depressive disorder, single episode, unspecified; G62.9 Polyneuropathy, unspecified
CPT/HCPCS: 36415; 71010; 80053; 81001; 82272; 84443; 84484; 85025; 85379; 87040 ×2; 87086; 96361; 96374; 99285; A9270; J2405; J7040; 36600; 82803; 83735; 87804; 94150; 94664; 99283; J0456; J0696; J7050; J7620

== ENCOUNTER 2016-11-23 04:00 | Inpatient (IN) | payer MEDICARE, BC ==
[2016-11-23] MEDS: Albuterol/Ipratropium 3.0-0.5 MG/3 ML Neb Soln NEB ONE ×2 (04:51→04:59)
[2016-11-23] MEDS ORDERED: Albuterol/Ipratropium 3.0-0.5 MG/3 ML Neb Soln NEB ONE (04:54)
[2016-11-23] MEDS ORDERED: Ondansetron 4 MG/2 ML SDV IV PRN (05:27)
[2016-11-23] MEDS ORDERED: Ibuprofen 400 MG Tab PO PRN (05:27)
[2016-11-23] MEDS ORDERED: Ondansetron 4 MG Tab.DIS PO PRN ×2 (05:27→05:43)
[2016-11-23] MEDS ORDERED: Acetaminophen 325 MG Tab PO PRN (05:27)
[2016-11-23] MEDS ORDERED: Magnesium Hydroxide 400 MG/5 ML Susp 30 ML Cup PO PRN (05:27)
[2016-11-23] MEDS ORDERED: Morphine 15 MG Tab PO PRN (05:43)
[2016-11-23] MEDS ORDERED: Fluticasone Propionate Nasal Spray 16 GM Bottle NASBOTH PRN (05:43)
[2016-11-23] MEDS ORDERED: Nitroglycerin 0.4 MG Tab.SL SL PRN (05:43)
[2016-11-23] MEDS ORDERED: Vancomycin 500 MG SDV IV SCH (05:45)
[2016-11-23] MEDS: Sodium Chloride 0.9% 1,000 ML IV SCH ×2 (06:11→16:14)
[2016-11-23] MEDS ORDERED: Meropenem 1 GM in Sodium Chloride 0.9% 100 ML IV ONE (07:00)
[2016-11-23] MEDS ORDERED: Vancomycin 1 GM, Vancomycin 250 MG in Sodium Chloride 0.9% 250 ML IV ONE (08:00)
[2016-11-23] MEDS ORDERED: Vancomycin 750 MG, Vancomycin 500 MG in Sodium Chloride 0.9% 250 ML IV ONE (09:00)
[2016-11-23] MEDS ORDERED: Vancomycin 1 GM SDV IV SCH (09:00)
[2016-11-23] MEDS ORDERED: Enoxaparin 30 MG/0.3 ML Syringe SUBCUT SCH (09:00)
[2016-11-23] MEDS: Albuterol/Ipratropium 3.0-0.5 MG/3 ML Neb Soln INH PRN (09:30)
[2016-11-23] MEDS: Apixaban 5 MG Tab PO SCH ×2 (10:01→20:14)
[2016-11-23] MEDS: Lubiprostone 24 MCG Cap PO SCH ×2 (10:01→17:11)
[2016-11-23] MEDS: Ferrous Sulfate 325 MG Tab PO SCH ×2 (10:01→20:14)
[2016-11-23] MEDS: Tamsulosin 0.4 MG Cap.ER PO SCH (10:01)
[2016-11-23] MEDS: Finasteride 5 MG Tab PO SCH (10:02)
[2016-11-23] MEDS: Multivitamin Tab PO SCH (10:02)
[2016-11-23] MEDS: Digoxin 125 MCG Tab PO SCH (10:02)
[2016-11-23] MEDS: Metoprolol Succinate 25 MG Tab.ER PO SCH (10:03)
[2016-11-23] MEDS: Cholecalciferol (Vitamin D3) 1,000 Unit Tab PO SCH (10:03)
[2016-11-23] MEDS: Morphine 15 MG Tab.ER PO SCH ×2 (10:10→20:14)
[2016-11-23] MEDS ORDERED: Iopamidol 755 Mg/ML 75 ML Bottle IV ONE (10:25)
--- NOTE | 2016-11-23 10:44 | HP ---
ADMISSION DATE: 11/23/2016 CHIEF COMPLAINT: Increasing dyspnea on exertion with fever, shaking chills, and cough. HISTORY OF PRESENT ILLNESS: This patient is a 86-year-old, male with a previous history of atrial fibrillation, BPH, hypertension, recurrent back surgeries, and arteriosclerotic heart disease with previous [place]. He was admitted after being brought to the emergency room with the above chief complaint. The patient states that he had developed pneumonia earlier in October and was hospitalized for a short time, discharged on antibiotics, and says he was feeling somewhat better, but in the last 24 hours noticed increasing shortness of breath, cough, and then developed a fever, shaking chills, was brought to the emergency room early this morning and evaluated and found to have recurrent right upper lobe pneumonia with significant infiltrate and leukocytosis. He was therefore admitted for more aggressive therapy. He says he has had maybe a little bit hemoptysis yesterday, but no chest pain, denies any palpitations. No peripheral edema. There has been no headaches or blurred vision, numbness or tingling of any extremity. He denies any choking episodes while eating. He has had no previous history of gastroesophageal reflux. He said he has a history of heart disease and previous coronary artery stenting apparently after his last back surgery. In 05/2016, he developed an NY and developed some congestive heart failure. Thereafter, he was in cardiac rehab for some time. He says he has had previous history of kidney stones along with a previous history of BPH. He does admit to nocturia, but he said since starting his tamsulosin and Proscar, considerable improvement in the frequency of that has been noted. He says now he is getting up just once or twice at night. CURRENT MEDICATIONS: 1. He was taking doxycycline 100 mg b.i.d. 2. Eliquis 5 mg b.i.d. 3. Ferrous sulfate 325 mg b.i.d. 4. Digoxin 0.125 mg daily. 5. He takes some MS Contin 15 mg b.i.d. 6. Finasteride 5 mg daily. 7. He uses Lunesta 2 mg at bedtime. 8. Metoprolol succinate 12.5 mg daily. 9. Pravastatin 80 mg at bedtime. 10.Omeprazole 20 mg daily. 11.Tamsulosin 0.4 mg daily. 12.Flonase 1 whiff in each nostril b.i.d. p.r.n. 13.Amitiza 24 mcg p.o. b.i.d. 14.He takes senna S 1 p.o. daily. 15.Docusate sodium 100 mg at bedtime. 16.P.r.n. morphine 15 mg q.4 hours for his back and hip pain. 17.Zofran 4 mg 3 times a day p.r.n. for nausea. 18.Nitrostat 0.4 mg sublingually p.r.n. for chest pain. 19.Multivitamin daily. ALLERGIES: Atorvastatin causes muscle pain. Levofloxacin, oxycodone, and penicillins. SOCIAL HISTORY: He says he smoked less than 1/2 pack per day for few years, but quit 60 years ago. Alcohol, he has 1 drink per day. PAST MEDICAL HISTORY: Pertinent that he has had previous cataract surgery bilaterally. He has had both shoulders were repaired. He had the angioplasty in 2012 and then the [place] again in 2015. He has had a number of back surgeries, most recent L2 through L5 fusion in 05/2016. He says shortly thereafter he developed his atrial fibrillation, the [place], and congestive heart failure. He has a history of hypertension and BPH, apparently that is chronic along with chronic left hip pain. FAMILY HISTORY: Both parents have . The mother in her 90s, he thinks of complications of brain tumor, but he is not sure. Dad of complications of a stroke in his 80s. He has 16 siblings, 4 of whom are still living, most of them from heart disease or some form of cancer. REVIEW OF SYSTEMS: Full review of systems was discussed. Other than that mentioned above was negative. PHYSICAL EXAMINATION: VITAL SIGNS: At this time, shows him to be afebrile. Blood pressure is 116/47, pulse is 75 and regular, respirations are 20, O2 saturation on 2 L is 94%. When he presented to the emergency room, his saturations were down to 77%. GENERAL: A well-developed, well-nourished male, in no acute distress. HEENT: Reveals the TMs to be clear. External auditory canals are unremarkable. Pupils are round and reactive well to light and accommodation. Extraocular movements are intact. Sclerae and conjunctivae are clear. Intraocular lenses are noted bilaterally. Nasal passages are open without discharge. Pharynx and palate are unremarkable except for mucous membranes being quite dry. NECK: Supple. There is no jugular venous distention while sitting upright. Thyroid is not enlarged. Trachea midline. Carotid pulses are strong and equal without bruits. Back is straight with no deformities. Incisional scars are noted in the low lumbar region without tenderness. CHEST: Reveals right basilar crackles posteriorly and anteriorly. He has crackles on the right chest area. There are no expiratory wheezes, no tachypnea, no rales could be heard on the left side, and there are no retractions. CARDIOVASCULAR: Reveals a normal S1 and S2 without murmur, rub, or gallop. ABDOMEN: Soft and nontender without organomegaly or masses. Bowel sounds are normal. No bruits are appreciated. GENITALIA: Reveals a normal uncircumcised male with testes descended bilaterally. No evidence of hernias. EXTREMITIES: Without clubbing. Decreased range of motion of both hips is noted. He has a little bit of tenderness with rotation into the right thigh, but no crepitation or other abnormalities are noted. He has no peripheral edema. No calf pain, swelling, or tenderness. Peripheral pulses are present and equal bilaterally. NEUROLOGIC: His cranial nerves are intact. His sensory and motor exam is entirely normal. LABORATORY DATA: CBC revealed hemoglobin 11.4, hematocrit 35.0, white count of 18,800 with a left shift, platelets are 218,000. D-dimer was 1290. His initial blood gas on 6 L of oxygen revealed a pH of 7.49, pCO2 of 33, PO2 of 62, bicarbonate of 25. His electrolytes were normal. CO2 was 27, BUN was 26, creatinine 1.2, random glucose 144, calcium was 8.6, magnesium was 1.5. Liver functions were normal. Troponin was less than 0.01. BNP was 250. Total protein and albumin were normal. Urinalysis was unremarkable. Chest x-ray showed significant infiltrate in the anterior segment of the right upper lobe. This apparently is the same place he had it back in October. IMPRESSION: 1. Recurrent right upper lobe pneumonia. 2. Chronic atrial fibrillation with controlled ventricular rate and a previous history of congestive heart failure. 3. Arteriosclerotic heart disease with previous history of coronary angioplasty. 4. Hypertension. 5. Benign prostatic hypertrophy. 6. Chronic low back and hip pain with resultant long-term narcotic therapy, which has also resulted in recurrent constipation and abdominal discomfort. 7. History of kidney stones. PLAN: The patient will be admitted. Cultures have already been obtained of his blood. Since he has been on doxycycline, with recurrence, he has been started on imipenem and vancomycin. CT scan of his chest will be done to rule out obstructive process causing the recurrent pneumonia, and then depending on that result, we may proceed with the swallowing evaluation. /[id number] /MODL
[2016-11-23] MEDS: Meropenem 1 GM in Sodium Chloride 0.9% 100 ML IV SCH (16:02)
[2016-11-23] MEDS: Omeprazole 20 MG Cap.CR PO SCH (16:08)
[2016-11-23] MEDS: Docusate Sodium Liquid 50 MG/5 ML ML 473 ML Bottle PO SCH (20:14)
[2016-11-23] MEDS: Zolpidem 5 MG Tab PO PRN (20:15)
[2016-11-23] MEDS: Simvastatin 40 MG Tab PO SCH (20:15)
[2016-11-23] MEDS ORDERED: ESZOPICLONE 2 MG PO SCH (21:00)
[2016-11-24] MEDS: Meropenem 1 GM in Sodium Chloride 0.9% 100 ML IV SCH ×4 (00:16→23:41)
[2016-11-24] MEDS: Sodium Chloride 0.9% 1,000 ML IV SCH ×2 (00:17→18:47)
[2016-11-24] MEDS: Lubiprostone 24 MCG Cap PO SCH ×2 (07:57→17:05)
[2016-11-24] MEDS: Metoprolol Succinate 25 MG Tab.ER PO SCH (08:01)
[2016-11-24] MEDS: Tamsulosin 0.4 MG Cap.ER PO SCH (08:01)
[2016-11-24] MEDS: Finasteride 5 MG Tab PO SCH (08:01)
[2016-11-24] MEDS: Multivitamin Tab PO SCH (08:02)
[2016-11-24] MEDS: Cholecalciferol (Vitamin D3) 1,000 Unit Tab PO SCH (08:02)
[2016-11-24] MEDS: Ferrous Sulfate 325 MG Tab PO SCH ×2 (08:02→20:00)
[2016-11-24] MEDS: Apixaban 5 MG Tab PO SCH ×2 (08:02→20:00)
[2016-11-24] MEDS: Digoxin 125 MCG Tab PO SCH (08:02)
[2016-11-24] MEDS: Albuterol/Ipratropium 3.0-0.5 MG/3 ML Neb Soln INH PRN (08:13)
[2016-11-24] MEDS: Morphine 15 MG Tab.ER PO SCH ×2 (08:35→20:00)
[2016-11-24] MEDS: Vancomycin 750 MG, Vancomycin 500 MG in Sodium Chloride 0.9% 250 ML IV SCH (08:35)
--- NOTE | 2016-11-24 12:48 | PN ---
DATE SEEN: 11/24/2016 SUBJECTIVE: This 86-year-old gentleman with a right upper lobe pneumonia, seen for followup. It feels like he is getting slowly better. He says he is not having any chest pain. His shortness of breath has improved. He says he is coughing, bringing up small amount of yellow sputum. Occasional hemoptysis was noted yesterday and none so far today. He has had no fever or chills. His appetite he feels is returning to normal. Denies any other complaints or concerns. His medications were reviewed. OBJECTIVE: GENERAL: He appears to be at this time in no acute distress. He remains afebrile. VITAL SIGNS: Pulse is 73. He has some occasional irregular beats and because of that last night, an EKG was done, showing ectopic PACs. He has a significant first-degree AV block, and these ectopic PACs have a much shorter AL interval, but no other abnormalities were noted other than evidence of a bundle branch block. His blood pressure was 114/57, respirations are 18, and O2 saturation on 1 L is 94%. HEENT: Unremarkable. Mucous membranes are pink and moist. CHEST: Revealed crackles at both posteriorly and right anterior crackles, but no tachypnea and no retractions. CARDIOVASCULAR: Revealed a normal S1 and S2 with occasional irregular beat. ABDOMEN: Soft, slightly obese, but nontender without organomegaly or masses. Bowel sounds are normal. EXTREMITIES: Unremarkable. No clubbing or edema. DIAGNOSTIC DATA: Blood cultures are negative. Pro-time INR was done today, which was normal at 1.17. IMPRESSION: 1. Recurrent right upper lobe pneumonia confirmed by CT scan. No evidence of masses. 2. History of intermittent atrial fibrillation with controlled ventricular rate and a previous history of congestive heart failure. 3. Arteriosclerotic heart disease with previous history of coronary angioplasty. 4. Hypertension. 5. Benign prostatic hypertrophy. 6. History of chronic low back and hip pain, requiring chronic long-term opioid therapy. 7. Known nephrolithiasis, currently nonobstructive. PLAN: We will continue his current antibiotics and follow up CBC and panel eight will be obtained in the morning. Because of the recurrent pneumonia, a swallowing evaluation will be obtained depending on the availability of speech therapy. Increase in activity and will follow from there. /[id number] /CALDERONL
[2016-11-24] MEDS: Omeprazole 20 MG Cap.CR PO SCH (17:05)
[2016-11-24] MEDS: Simvastatin 40 MG Tab PO SCH (20:00)
[2016-11-24] MEDS: Docusate Sodium Liquid 50 MG/5 ML ML 473 ML Bottle PO SCH (20:00)
[2016-11-24] MEDS: Zolpidem 5 MG Tab PO PRN (20:00)
[2016-11-25] MEDS: Sodium Chloride 0.9% 1,000 ML IV SCH (03:40)
[2016-11-25] MEDS: Apixaban 5 MG Tab PO SCH ×2 (08:12→20:09)
[2016-11-25] MEDS: Tamsulosin 0.4 MG Cap.ER PO SCH (08:12)
[2016-11-25] MEDS: Multivitamin Tab PO SCH (08:12)
[2016-11-25] MEDS: Lubiprostone 24 MCG Cap PO SCH ×2 (08:12→17:25)
[2016-11-25] MEDS: Digoxin 125 MCG Tab PO SCH (08:12)
[2016-11-25] MEDS: Cholecalciferol (Vitamin D3) 1,000 Unit Tab PO SCH (08:13)
[2016-11-25] MEDS: Finasteride 5 MG Tab PO SCH (08:13)
[2016-11-25] MEDS: Ferrous Sulfate 325 MG Tab PO SCH ×2 (08:13→20:09)
[2016-11-25] MEDS: Metoprolol Succinate 25 MG Tab.ER PO SCH (08:14)
[2016-11-25] MEDS: Meropenem 1 GM in Sodium Chloride 0.9% 100 ML IV SCH ×2 (08:33→15:33)
[2016-11-25] MEDS: Morphine 15 MG Tab.ER PO SCH ×2 (09:11→20:09)
[2016-11-25] MEDS: Vancomycin 750 MG, Vancomycin 500 MG in Sodium Chloride 0.9% 250 ML IV SCH (09:12)
--- NOTE | 2016-11-25 12:12 | PN ---
DATE SEEN: 11/25/2016 SUBJECTIVE: Mr. Garzon is an 86-year-old gentleman with a history of recurrent right upper lobe pneumonia. He says he is doing better. His cough is improving. He has no chest pain. No further hemoptysis. Denies any fever. Apparently, he has developed some loose stools twice this morning, that had been without blood, pus, or cramps. Denies any other complaints or concerns. MEDICATIONS: His medications were reviewed. ALLERGIES: Reviewed. OBJECTIVE: GENERAL: He appears to be comfortable and in no acute distress. VITAL SIGNS: Afebrile. Blood pressure 147/57, pulse is 72 and regular at this time. O2 saturation on room air was 95%. HEENT: Unremarkable. NECK: There was no jugular venous distention. CHEST: At this time reveals a few crackles at the right base, but these are almost totally cleared. CARDIOVASCULAR: Revealed a normal S1 and S2 and at this time his rhythm is regular. No murmur, rub, or gallop was noted. ABDOMEN: Soft without specific point tenderness. No rebound or rigidity. EXTREMITIES: Unremarkable. LABORATORY DATA: Lab today revealed; his hemoglobin was down to 9.2, hematocrit of 29.0, white count of 7900 with normal differential, platelets were 163,000. MCV was 90.9. IMPRESSION: 1. Right upper lobe pneumonia. 2. New onset of diarrhea with a drop in hemoglobin. The drop may be related to rehydration, but we will check Hemoccults, especially with the loose stools. The stools may also be caused by the antibiotics. We will watch closely. 3. History of hypertension. 4. History of coronary artery disease. 5. Benign prostatic hyperplasia. 6. History of long-term low back and hip pain requiring opiate therapy. PLAN: At this point, we will saline lock his IV, continue his antibiotics, and watch closely. Increase activity and a swallowing evaluation is being done today because of the recurrence of his pneumonia. We will follow from there. /[id number] WM/MODL
--- NOTE | 2016-11-25 13:20 | CR ---
INDICATION: Short of breath. CHEST: PA and lateral views of the chest 11/23/2016 were compared with 2016 and 11/08/2016, revealing a new finding of significant increase in infiltration in the right upper lobe compatible with pneumonia and pleuritis, there being some thickening of the minor fissure. There also is some minimal patchy infiltration in the right lower lobe, also compatible with pneumonia. Slightly flattened diaphragm leaves and prominent AP diameter, as well as mild hyperaeration suggest COPD additionally. Flowing hyperostotic changes suggest DISH in the lower thoracic spine. Demineralization is suggested, compatible with osteoporosis additionally. The heart is enlarged with LVE. The aorta is tortuous and calcified in the arch area and descending portion. IMPRESSION: 1. Patchily consolidating pneumonia right upper lobe involving multiple segments, but especially anterobasal segment. 2. Minimal patchy pneumonia right lower lobe. 3. COPD. 4. ASHD with LVE. 5. DISH and probable osteoporosis. MTDD
--- NOTE | 2016-11-25 13:53 | CR ---
INDICATION: Recurrent pneumonia. SWALLOWING FUNCTION WITH VIDEO: 2 minutes 42 seconds videofluoroscopy time with DVD recording was utilized with various barium-tinged meals to evaluate the swallowing mechanism. Flash penetration is noted with thin and nectar liquids. There is some retention with solids especially, which is relieved by additional swallows and especially with chin tucking. Tucking of the chin during swallowing mechanism also was helpful in decreasing the degree of penetration and the degree of retention. No aspiration was identified during this examination. MTDD
--- NOTE | 2016-11-25 15:43 | ER ---
DATE SEEN: 11/23/2016 TIME SEEN: The patient was seen at 0420 hours in the morning. HISTORY OF PRESENT ILLNESS: This pleasant 86-year-old man was in the hospital 11/17/2016, treated for pneumonia with Rocephin and azithromycin, discharged on doxycycline and azithromycin. He is now short of Breath and "is freezing to ." Has mild dyspnea on exertion. He has chronic back pain for which he takes morphine frequently. He was recently placed on routine lubiprostone for extensive constipation induced by narcotics. PAST MEDICAL HISTORY: Coronary artery disease, atrial fibrillation, heart murmur, dyslipidemia, hypertension, myocardial infarction with several stents, aortic insufficiency, non-STEMI, previous colon polyps, dyspnea on exertion, renal calculus, urinary tract infection, previous bladder outlet obstruction with prostatism, lumbar stenosis, rotator cuff tear, sacroiliac joint dysfunction with spondylolisthesis, recent back surgery, which now because of osteoporosis, these screws have halos around them resulting in unstable loose screw stabilizers induced low back pain. Dr. Agustin of [place] noted he would not perform surgery because of his coronary artery disease, he is too high risk for myocardial infarction with back surgery, anemia. PREVIOUS SURGERY: Colonoscopy, vasectomy, lumbar spine surgery, shoulder surgery, PCTA, sinus surgery, eye surgery. CURRENT MEDICATIONS: 1. Flomax. 2. Senna-S. 3. Pravastatin. 4. Zofran. 5. Omeprazole. 6. Nitroglycerin p.r.n. 7. Multivitamins. 8. Morphine 15 mg b.i.d. 9. MS Contin. 10.Morphine 15 mg p.o. q.4 hours p.r.n. breakthrough. 11.Metoprolol succinate 12.5 mg daily. 12.Lubiprostone (Amitiza) 24 mcg p.o. b.i.d. 13.Flonase. 14.Proscar. 15.Ferrous sulfate. 16.Lunesta. 17.Doxycycline. 18.Azithromycin. 19.Apixaban 5 mg b.i.d. 20.Vitamin D. 21.Digoxin 125 mcg daily. He is status post influenza shot this year. He has had pneumococcal shots in 2014 and 2008 and the last TD was 2008. ALLERGIES: Atorvastatin, levofloxacin, oxycodone, and penicillins. REVIEW OF SYSTEMS: Significant constipation, cough, decreased flow to bladder, prostatism, generalized weakness. PHYSICAL EXAMINATION: VITAL SIGNS: Blood pressure 147/56; heart rate 104 and irregular; respirations 20; oxygen saturation 77% on room air, on 2 L 82%, and on 4 L 90% to 91%; weight 81.63 kg. GENERAL: Sigifredo has his eyes closed and is easily arousable, attended by his . HEENT: PERRLA intact. Hearing decreased. Pharynx, dry mucosa. No thyromegaly or masses in neck. No cervical adenopathy. No bruits. LUNGS: Clear anteriorly, but has decreased air exchange in right lung, markedly decreased, and left lung has better air exchange with rales in both lungs. HEART: S1 and S2. No murmur. ABDOMEN: Soft, without guarding or abdominal discomfort. Bowel sounds hypoactive. EXTREMITIES: Lower extremities without edema. Deep tendon reflexes hypoactive in upper and lower extremities. NEUROLOGIC: Cranial nerves 2 through 12 intact except for decreased hearing. Pharynx gag in place. LABORATORY DATA: Chest x-ray: Probable aspiration pneumonia with right upper lobe infiltrate. White count elevated at 18,800, PMNs 92, bands 1, lymphs 5, monocytes 1, hemoglobin 11.4, platelets 218,000. D-dimer elevated at 1290. ABG: pH 7.49, pCO2 of 33, pO2 of 62, oxygen saturation 93%, and base excess 2.2. Sodium 137, potassium 4.1, chloride 101, bicarb 27, BUN 26, creatinine 1.2, BUN and creatinine ratio 21.2, glucose 144, calcium 8.6, magnesium 1.5. Troponin less than 0.01. BNP 250. ASSESSMENT: 1. Right upper lobe pneumonia. 2. Probable aspiration pneumonia. 3. Coronary artery disease with previous stents. 4. Atrial fibrillation. 5. Hypertension without congestive heart failure with mild cardiomegaly. 6. Respiratory alkalosis secondary to tachypnea with decreased CO2 and moderate hypoxia. 7. Moderate dehydration, 21.7 BUN and creatinine ratio. 8. Reactive hyperglycemia. 9. Hypomagnesemia. 10.No evidence for myocardial infarction. 11.Elevated D-dimer probably relative to his age. His age would put him at upper limits. Rule of ten study number of normal would be considered 860. His is 1290, still is within the upper limits of normal. Doubt pulmonary embolism. I believe he has had studies before to rule out pulmonary embolism in his last hospitalization, with elevated D-dimer at that time. At that time on 11/17/2016, he had an of 860 and had less hypoxia. His pO2 was 120, today pO2 is 62. Oxygen saturation at that time was 98%, today is 93%. 12.Last hospitalization, he had negative studies for influenza A and B. He did not have a CT of his chest nor was he felt to have a pulmonary embolus. PLAN: The patient is to be admitted to the hospital, IV therapy 150 mL/hr normal saline. Increased antibiotic coverage, vancomycin plus meropenem. He is allergic to penicillin, but Meropenem has lowest carbapenem-penicillin associated allergic reactivity, q2 hours DuoNebs and O2 p.r.n., hydration, and encourage walking. Continue his apixaban. /[id number] ANAM/LORENZO
[2016-11-25] MEDS: Omeprazole 20 MG Cap.CR PO SCH (17:25)
[2016-11-25] MEDS: Docusate Sodium Liquid 50 MG/5 ML ML 473 ML Bottle PO SCH (20:04)
[2016-11-25] MEDS: Zolpidem 5 MG Tab PO PRN (20:10)
[2016-11-25] MEDS: Simvastatin 40 MG Tab PO SCH (20:10)
[2016-11-26] MEDS: Meropenem 1 GM in Sodium Chloride 0.9% 100 ML IV SCH ×3 (00:07→15:40)
[2016-11-26] MEDS ORDERED: Sodium Chloride 0.9% 250 ML IV SCH (08:30)
[2016-11-26] MEDS: Lubiprostone 24 MCG Cap PO SCH ×2 (08:35→18:12)
[2016-11-26] MEDS: Apixaban 5 MG Tab PO SCH ×2 (08:35→21:25)
[2016-11-26] MEDS: Digoxin 125 MCG Tab PO SCH (08:35)
[2016-11-26] MEDS: Tamsulosin 0.4 MG Cap.ER PO SCH (08:35)
[2016-11-26] MEDS: Ferrous Sulfate 325 MG Tab PO SCH ×2 (08:35→21:25)
[2016-11-26] MEDS: Finasteride 5 MG Tab PO SCH (08:36)
[2016-11-26] MEDS: Multivitamin Tab PO SCH (08:36)
[2016-11-26] MEDS: Metoprolol Succinate 25 MG Tab.ER PO SCH (08:36)
[2016-11-26] MEDS: Cholecalciferol (Vitamin D3) 1,000 Unit Tab PO SCH (08:47)
[2016-11-26] MEDS: Morphine 15 MG Tab.ER PO SCH ×2 (08:47→21:25)
[2016-11-26] MEDS ORDERED: Vancomycin 750 MG, Vancomycin 500 MG in Sodium Chloride 0.9% 250 ML IV SCH (09:30)
[2016-11-26] MEDS: Vancomycin 750 MG, Vancomycin 500 MG in Sodium Chloride 0.9% 250 ML IV SCH ×2 (09:52→21:27)
--- NOTE | 2016-11-26 16:26 | PN ---
DATE SEEN: 11/26/2016 SUBJECTIVE: Mr. Sigifredo Garzon is an 86-year-old gentleman admitted with recurrent right upper lobe pneumonia. He continues to gradually improve. His activity has improved and he is up and about. He did have some diarrhea stool yesterday; but that actually has improved today. He denies any fever. His appetite is slowly improving. He did have a swallowing evaluation done yesterday that showed no significant aspiration. A small amount does leak down into his vallecula, but with the chin tilted that resolves completely. The nursing staff and both he and his have been informed of this and sitting up with each meal and making sure that he does the chin tilt maneuver with each swallowing, was strongly encouraged and recommended. He continues his IV antibiotics and he has had no other difficulties. Denies any other complaints. He is able to void without problems and slept well. OBJECTIVE: GENERAL: He appears to be quite comfortable, alert, and no acute distress. VITAL SIGNS: Again remains afebrile. Blood pressure 130/48, pulse is 80 and regular, respirations are 20 and unlabored, and O2 saturation remains at 96% to 93%. HEENT: Unremarkable. NECK: Carotid pulses strong and equal without bruits. CHEST: Exam reveals still some crackles at the right base and also the left right anterior chest, but these actually have improved. There is no evidence of tachypnea, no chest discomfort, no rubs could be heard. CARDIOVASCULAR: Revealed a normal S1 and S2 without murmur, rub, or gallop. ABDOMEN: Unremarkable without tenderness, organomegaly, or masses. Bowel sounds are normal. EXTREMITY: Negative. No clubbing. No edema. No ulcerations or areas of breakdown. LABORATORY DATA: Today, his hemoglobin is up to 11.2, there must been an error yesterday. His white count is 6700. His platelets were 186,000. IMPRESSION: 1. Recurrent right upper lobe pneumonia, improving. 2. History of hypertension. 3. History of coronary artery disease. 4. Benign prostatic hypertrophy. 5. History of long-term low back and hip pain with resultant opioid therapy. PLAN: At this point, we will make no changes. I am going to saline lock his IV. Continue his antibiotics and have him up and about and will follow from there. /[id number] /CALDERONL
[2016-11-26] MEDS: Omeprazole 20 MG Cap.CR PO SCH (17:16)
[2016-11-26] MEDS: Simvastatin 40 MG Tab PO SCH (21:27)
[2016-11-26] MEDS: Docusate Sodium Liquid 50 MG/5 ML ML 473 ML Bottle PO SCH (22:04)
[2016-11-27] MEDS: Meropenem 1 GM in Sodium Chloride 0.9% 100 ML IV SCH ×3 (01:10→16:16)
[2016-11-27] MEDS: Sodium Chloride 0.9% 250 ML IV SCH (08:44)
[2016-11-27] MEDS: Morphine 15 MG Tab.ER PO SCH ×2 (08:51→21:00)
[2016-11-27] MEDS: Ferrous Sulfate 325 MG Tab PO SCH ×2 (08:52→20:53)
[2016-11-27] MEDS: Apixaban 5 MG Tab PO SCH ×2 (08:52→20:52)
[2016-11-27] MEDS: Lubiprostone 24 MCG Cap PO SCH ×2 (08:52→17:04)
[2016-11-27] MEDS: Digoxin 125 MCG Tab PO SCH (08:52)
[2016-11-27] MEDS: Tamsulosin 0.4 MG Cap.ER PO SCH (08:52)
[2016-11-27] MEDS: Finasteride 5 MG Tab PO SCH (08:53)
[2016-11-27] MEDS: Multivitamin Tab PO SCH (08:53)
[2016-11-27] MEDS: Metoprolol Succinate 25 MG Tab.ER PO SCH (08:53)
[2016-11-27] MEDS: Cholecalciferol (Vitamin D3) 1,000 Unit Tab PO SCH (08:53)
[2016-11-27] MEDS: Vancomycin 750 MG, Vancomycin 500 MG in Sodium Chloride 0.9% 250 ML IV SCH ×2 (09:22→22:09)
--- NOTE | 2016-11-27 10:58 | PN ---
DATE SEEN: 11/27/2016 SUBJECTIVE: Mr. Garzon presents today for followup of his right upper lobe pneumonia. He was seen today for followup of his right upper lobe pneumonia. He had a swallowing evaluation that showed possibly minimal aspiration, but resolved completely with chin tuck. He has been doing that on a regular basis and has had no problems with choking or coughing. He actually feels quite good and has no other complaints or concerns. He continues to get his imipenem and vancomycin for the recurrent pneumonia, as he is allergic to penicillin and levofloxacin. OBJECTIVE: GENERAL: He appears to be quite comfortable, alert, in no acute distress. VITAL SIGNS: Afebrile. Blood pressure 117/50, pulse is 69 and regular, O2 saturation on room air is 94%. His respirations are 18 and unlabored. HEENT: Unremarkable. The chest still has a few crackles at the right base and right anterior chest, but these gradually are improving. The left side is completely clear. No retractions and no tachypnea. CARDIOVASCULAR: Unremarkable except for a slightly irregular rhythm. ABDOMEN: Unremarkable. EXTREMITY: Negative. I asked about the loose stools he has had previously, and that has since resolved. IMPRESSION: 1. Recurrent right upper lobe pneumonia. 2. History of chronic atrial fibrillation with controlled ventricular rate. 3. History of congestive heart failure and previous arteriosclerotic heart disease with angioplasty. 4. Hypertension, well controlled. 5. History of benign prostatic hypertrophy. 6. Known nephrolithiasis with a history of ureterolithiasis. 7. History of chronic low back pain on long-term opioid therapy. PLAN: This is the day 4 of IV antibiotics, and I would like him to have 5 days, as he has had recurrent pneumonia. Thereafter, we will switch him over to probably Cleocin and Bactrim for another 5 days to make sure this is cleared completely. Followup x-rays will be obtained as an outpatient, and he is comfortable with that. Increase his activity. We will continue his Eliquis and other medicines as before. We will watch for any new symptoms and hopefully discharge soon. /[id number] /CALDERONL
[2016-11-27] MEDS: Omeprazole 20 MG Cap.CR PO SCH (16:18)
[2016-11-27] MEDS: Sodium Chloride 0.9% 10 ML Syringe FLUSH PRN (17:04)
[2016-11-27] MEDS: Simvastatin 40 MG Tab PO SCH (20:53)
[2016-11-27] MEDS: Docusate Sodium Liquid 50 MG/5 ML ML 473 ML Bottle PO SCH (21:00)
[2016-11-27] MEDS: Zolpidem 5 MG Tab PO PRN (21:01)
[2016-11-28] MEDS: Lubiprostone 24 MCG Cap PO SCH ×2 (07:18→19:20)
[2016-11-28] MEDS: Digoxin 125 MCG Tab PO SCH (08:13)
[2016-11-28] MEDS: Apixaban 5 MG Tab PO SCH ×2 (08:13→20:14)
[2016-11-28] MEDS: Ferrous Sulfate 325 MG Tab PO SCH ×2 (08:13→20:14)
[2016-11-28] MEDS: Tamsulosin 0.4 MG Cap.ER PO SCH (08:13)
[2016-11-28] MEDS: Finasteride 5 MG Tab PO SCH (08:16)
[2016-11-28] MEDS: Multivitamin Tab PO SCH (08:16)
[2016-11-28] MEDS: Metoprolol Succinate 25 MG Tab.ER PO SCH (08:16)
[2016-11-28] MEDS: Cholecalciferol (Vitamin D3) 1,000 Unit Tab PO SCH (08:17)
[2016-11-28] MEDS: Morphine 15 MG Tab.ER PO SCH ×2 (08:27→20:21)
[2016-11-28] MEDS: Meropenem 1 GM in Sodium Chloride 0.9% 100 ML IV SCH ×4 (08:28→15:35)
[2016-11-28] MEDS: Sodium Chloride 0.9% 10 ML Syringe FLUSH PRN (08:32)
[2016-11-28] MEDS: Sodium Chloride 0.9% 250 ML IV SCH (08:33)
[2016-11-28] MEDS: Vancomycin 750 MG, Vancomycin 500 MG in Sodium Chloride 0.9% 250 ML IV SCH (09:59)
--- NOTE | 2016-11-28 10:28 | PN ---
DATE SEEN: 11/28/2016 SUBJECTIVE: Mr. Garzon is seen today for followup of his recurrent right upper lobe pneumonia and continues to improve. He says his cough is minimal amount. He has no shortness of breath. No further loose stools. He denies any fever, chills, or night sweats. His appetite has returned to normal. No abdominal pain or other concerns. MEDICATIONS: Reviewed. ALLERGIES: Reviewed, OBJECTIVE: GENERAL: At this time, he is in no acute distress. VITAL SIGNS: Afebrile. Blood pressure 119/57, pulse is 67 and regular, respirations are 16 and unlabored, O2 saturation on room air is 93%. HEENT: Unremarkable. Thyroid is not enlarged. CHEST: Revealed a few crackles at the right base, but these are almost totally resolved. The left side is completely clear. No wheezes, rales, rhonchi, or retractions. CARDIOVASCULAR: Revealed a regular rhythm without murmur, rub, or gallop. ABDOMEN: Unremarkable without tenderness, organomegaly, or masses. EXTREMITIES: Without clubbing or edema. IMPRESSION: Recurrent right upper lobe pneumonia. PLAN: This will be day #5 on IV antibiotics, we will discontinue and switch over to Bactrim DS one b.i.d., along with Cleocin 300 mg q.i.d. and will discharge home tomorrow, if all goes well. Continue to increase his activity level and will check digoxin level in the morning. /[id number] /CALDERONL
[2016-11-28] MEDS: Omeprazole 20 MG Cap.CR PO SCH (19:20)
[2016-11-28] MEDS: Simvastatin 40 MG Tab PO SCH (20:14)
[2016-11-28] MEDS: Sulfamethoxazole/Trimethoprim 800-160 MG Tab PO SCH (20:14)
[2016-11-28] MEDS: Docusate Sodium Liquid 50 MG/5 ML ML 473 ML Bottle PO SCH (20:15)
[2016-11-28] MEDS: Zolpidem 5 MG Tab PO PRN (20:20)
[2016-11-28] MEDS: Clindamycin HCl 150 MG Cap PO SCH (21:41)
[2016-11-29] MEDS: Clindamycin HCl 150 MG Cap PO SCH (05:16)
[2016-11-29] MEDS: Lubiprostone 24 MCG Cap PO SCH (07:43)
[2016-11-29] MEDS: Sodium Chloride 0.9% 10 ML Syringe FLUSH PRN (07:45)
[2016-11-29] MEDS: Metoprolol Succinate 25 MG Tab.ER PO SCH (08:43)
[2016-11-29] MEDS: Ferrous Sulfate 325 MG Tab PO SCH (08:43)
[2016-11-29] MEDS: Sulfamethoxazole/Trimethoprim 800-160 MG Tab PO SCH (08:43)
[2016-11-29] MEDS: Digoxin 125 MCG Tab PO SCH (08:43)
[2016-11-29] MEDS: Tamsulosin 0.4 MG Cap.ER PO SCH (08:43)
[2016-11-29] MEDS: Morphine 15 MG Tab.ER PO SCH (08:43)
[2016-11-29] MEDS: Cholecalciferol (Vitamin D3) 1,000 Unit Tab PO SCH (08:43)
[2016-11-29] MEDS: Apixaban 5 MG Tab PO SCH (08:43)
[2016-11-29] MEDS: Multivitamin Tab PO SCH (08:43)
[2016-11-29] MEDS: Finasteride 5 MG Tab PO SCH (08:43)
[2016-11-29 08:44] VITALS: BP 112/45
--- NOTE | 2016-11-29 11:48 | PN ---
DATE SEEN: 11/29/2016 SUBJECTIVE: Sigifredo Garzon is an 86-year-old male, admitted with complicated pneumonia. He has responded well to therapy. Right upper lobe pneumonia recurrent in nature. This has been followed closely. Medications have been adjusted accordingly. He has completed 5 days of IV antibiotics, was switched yesterday to Bactrim DS 1 p.o. b.i.d. along with clindamycin 300 mg b.i.d. complementary care and well being. Doing well. O2 saturation 94%. Chest x-ray, none recent. OBJECTIVE: VITAL SIGNS: Temperature 36.7, heart rate 82, blood pressure 112/45, 18 is the respirations, 95% on room air. GENERAL: Appears comfortable, cooperative. Speech is a little bit gated. HEENT: Reveal funduscopic benign. Bright TMs. Clear nasal discharge. Mouth and oropharynx are clear. CHEST: Decreased breath sounds in right upper lobe distribution. HEART: Regular without ectopy or murmur. ABDOMEN: Benign. No hepatosplenomegaly. ASSESSMENT: Right upper lobe pneumonia. PLAN: Discharge home as per instructions to Bactrim DS 1 p.o. b.i.d., 10 days' duration. Clindamycin 3 mg 1 p.o. t.i.d. 10 days' duration. Complementary care and well being. Home Health required. [facility] /[id number] LISETTE/LORENZO
--- NOTE | 2016-11-30 00:57 | DISCH ---
DISCHARGE DATE: 11/29/2016 DIAGNOSES: 1. Right upper lobe pneumonia. 2. Septicemia. 3. Respiratory difficulty. HISTORY: Sigifredo Garzon is an 86-year-old male, admitted with increase in dyspnea, fever, chills, sweats, a complicated medical history, was found to have right upper lobe pneumonia, confirmed by CT. Complicated infection required major adjustments of antibiotic therapy, was finally switched from oral to IV therapy yesterday. Fever-free, comfortable, ambulating, O2 sats are good, tolerating his medications as prescribed. Otherwise in good health. PHYSICAL EXAMINATION: CHEST: Clear. Decreased breath sounds in right upper lobe. HEART: Regular. ABDOMEN: Benign. ASSESSMENT: Right upper lobe pneumonia. PLAN: 1. Discharge home. 2. Bactrim DS 1 p.o. b.i.d., 10 days' duration. 3. Clindamycin 300 mg 1 p.o. t.i.d., 10 days' duration. 4. Complementary care and well being. 5. Followup appointment with Dr. Adkins in first part of the week. SURGICAL PROCEDURES: None. CONSULTATION: None. MEDICATIONS: Please see med recon list. /[id number] LISETTE/LORENZO
== END 2016-11-29 12:10 | disposition home or self-care (01) | DRG 871 ==
LOC: FB.ED 04:00 → FB.MS 05:27
PROVIDERS: ADMIT Emergency Medicine; ATTEND Family Medicine
DX: A41.9 Sepsis, unspecified organism (principal); J18.9 Pneumonia, unspecified organism; N40.0 Benign prostatic hyperplasia without lower urinary tract symptoms; I48.91 Unspecified atrial fibrillation; E86.0 Dehydration; E87.3 Alkalosis; I10 Essential (primary) hypertension; R73.9 Hyperglycemia, unspecified; E83.42 Hypomagnesemia; I25.2 Old myocardial infarction; I25.10 Atherosclerotic heart disease of native coronary artery without angina pectoris; Z95.5 Presence of coronary angioplasty implant and graft; Z87.442 Personal history of urinary calculi; M25.552 Pain in left hip; G89.29 Other chronic pain; I50.9 Heart failure, unspecified; I48.2 Chronic atrial fibrillation; Z79.891 Long term (current) use of opiate analgesic; I11.0 Hypertensive heart disease with heart failure
CPT/HCPCS: 36415; 36600; 71020; 80053; 81001; 82803; 83735; 83880; 84484; 85025; 85379; 87040 ×2; 94640; 99284 ×2; J7620 ×2; 71270; 74230; 80048; 80162; 80202; 84100; 85027; 85610; 92611-GN; 93005; 94150; A9270-GY; J2185; J3370; J7030; J7040; J7050; Q9967

== ENCOUNTER 2017-03-22 13:01 | Emergency (ER) | payer MEDICARE, BC ==
--- NOTE | 2017-03-22 13:32 | EDM.PDOC ---
ED HPI GENERAL MEDICAL PROBLEM - General Chief Complaint: Respiratory Problem Stated Complaint: SOB POSSIBLE ANXIETY Time Seen by Provider: 03/22/17 13:18 Source of Information: Reports: Patient, Family History Limitations: Reports: No Limitations - History of Present Illness INITIAL COMMENTS - FREE TEXT/NARRATIVE: 87 years old w m with h/o CAD, came to the ed due to SOB last night, unable to sleep. No C/P no N/V/D. Pt is a poor historian. BP 113/67 pulse 67, temp 37F, Pulse ox 97%. Onset: Gradual Onset Date: 03/21/17 Onset Time: 23:00 Duration: Hour(s):, Intermittent Location: Reports: Chest - Related Data Allergies Allergy/AdvReac Type Severity Reaction Status Date / Time atorvastatin Allergy Muscle Verified 03/22/17 13:29 Aches levofloxacin [From Levaquin] Allergy Hives Verified 03/22/17 13:29 oxycodone [From Roxicet] Allergy Nausea and Verified 03/22/17 13:29 Vomiting Penicillins Allergy Hives Verified 03/22/17 13:29 Home Meds: Home Meds Cholecalciferol (Vitamin D3) [Vitamin D3] 1,000 units PO DAILY 04/26/14 [History ] Multivitamin [Daily Vitamin] 1 each PO DAILY 04/26/14 [History] Fluticasone Propionate [Flonase] 1 spray NASBOTH BID PRN 10/18/15 [History] Ferrous Sulfate 325 mg PO BID 06/07/16 [History] Finasteride [Proscar] 5 mg PO DAILY 06/07/16 [History] Tamsulosin [Flomax] 0.4 mg PO DAILY 06/07/16 [History] Apixaban [Eliquis] 5 mg PO BID 06/18/16 [History] Digoxin 125 mcg PO DAILY 06/18/16 [History] Metoprolol Succinate 12.5 mg PO DAILY 06/18/16 [History] Nitroglycerin [Nitrostat] 0.4 mg SL Q5M PRN 06/18/16 [History] Pravastatin [Pravachol] 80 mg PO BEDTIME 06/18/16 [History] Docusate Sodium [Docu 50 MG/5 ML Liquid] 100 mg PO BEDTIME 11/09/16 [History] Eszopiclone [Lunesta] 2 mg PO BEDTIME 11/09/16 [History] Morphine 15 mg PO Q4H PRN 11/09/16 [History] Morphine [MS Contin] 15 mg PO BID 11/09/16 [History] Omeprazole 20 mg PO 1700 11/09/16 [History] Ondansetron [Zofran ODT] 4 mg PO TIDAC PRN 11/09/16 [History] Lubiprostone [Amitiza] 24 mcg PO BIDMEALS #60 cap 11/10/16 [Rx] Sennosides/Docusate Sodium [Senna-S] 1 each PO DAILY #30 tablet 11/18/16 [Rx] Clindamycin HCl [Cleocin] 300 mg PO Q8H #30 cap 11/29/16 [Rx] Sulfamethoxazole/Trimethoprim [IJD: Sulfamethoxazole/Trimethoprim DS] 1 tab PO BID #20 tablet 11/29/16 [Rx] Past Medical History HEENT History: Reports: Cataract, Impaired Vision, Sinusitis, Other (See Below) Other HEENT History: astigmatism, chronic rhinitis Cardiovascular History: Reports: Afib, CAD, Heart Murmur, High Cholesterol, Hypertension, [place], Stents, Other (See Below) Other Cardiovascular History: aortic insufficiency, hyper lipidemia, NSTEMI Respiratory History: Reports: Pneumonia, Recurrent, Other (See Below) Other Respiratory History: CHACON Gastrointestinal History: Reports: Colon Polyp, GERD, Other (See Below) Other Gastrointestinal History: colitis, dysphagia Genitourinary History: Reports: Renal Calculus, UTI, Recurrent, Other (See Below ) Other Genitourinary History: bladder outlet obstruction, Musculoskeletal History: Reports: Arthritis, Other (See Below) Other Musculoskeletal History: lumbar stenosis, rotator cuff tear, SI joint dystruction, spondylosis of lumbar region, chronic left hip pain, DJD Neurological History: Reports: Neuropathy, Peripheral, Other (See Below) Other Neuro History: chronic fatigue, menieres syndrome Psychiatric History: Reports: Depression Hematologic History: Reports: Anemia, Blood Transfusion(s) Dermatologic History: Reports: Other (See Below) Other Dermatologic History: actinic keratosis, siborrheic keratoses - Infectious Disease History Infectious Disease History: Reports: Chicken Pox, Mumps - Past Surgical History HEENT Surgical History: Reports: Eye Surgery, Other (See Below) Cardiovascular Surgical History: Reports: Percutaneous Transluminal Angioplasty Neurological Surgical History: Reports: Lumbar Spine Musculoskeletal Surgical History: Reports: Shoulder Surgery, Other (See Below) Social & Family History - Family History Family Medical History: Noncontributory - Tobacco Use Smoking Status *Q: Former Smoker Used Tobacco, but Quit: Yes Month Tobacco Last Used: nov Second Hand Smoke Exposure: No - Caffeine Use Caffeine Use: Reports: Coffee Caffeine Use Comment: 2-3cups per day - Alcohol Use Days Per Week of Alcohol Use: 7 Number of Drinks Per Day: 1 Total Drinks Per Week: 7 - Recreational Drug Use Recreational Drug Use: No ED ROS GENERAL - Review of Systems Review Of Systems: See Below Constitutional: Reports: No Symptoms HEENT: Reports: No Symptoms Respiratory: Reports: No Symptoms Cardiovascular: Reports: No Symptoms Endocrine: Reports: No Symptoms GI/Abdominal: Reports: No Symptoms : Reports: No Symptoms Musculoskeletal: Reports: No Symptoms Skin: Reports: No Symptoms Neurological: Reports: No Symptoms Psychiatric: Reports: No Symptoms Hematologic/Lymphatic: Reports: No Symptoms Immunologic: Reports: No Symptoms ED EXAM, GENERAL - Physical Exam Exam: See Below Exam Limited By: Other (poor historian) General Appearance: Alert, WD/WN, No Apparent Distress, Anxious Eye Exam: Bilateral Eye: Normal Inspection Ears: Normal External Exam Ear Exam: Bilateral Ear: Auricle Normal Nose: Normal Inspection, Normal Mucosa Throat/Mouth: Normal Inspection, Normal Lips Head: Atraumatic, Normocephalic Neck: Normal Inspection, Supple, Non-Tender Respiratory/Chest: No Respiratory Distress, Lungs Clear, Normal Breath Sounds, Chest Non-Tender Cardiovascular: Normal Peripheral Pulses, Regular Rate, Rhythm, No Edema GI/Abdominal: Normal Bowel Sounds, Soft (Male) Exam: No Hernia, Normal Inspection Rectal (Males) Exam: Deferred Back Exam: Normal Inspection, Full Range of Motion Extremities: Normal Inspection, Normal Range of Motion, Non-Tender Neurological: Alert, Oriented, CN II-XII Intact, Normal Cognition, Normal Gait Psychiatric: Normal Affect, Normal Mood Skin Exam: Warm, Dry, Intact, Normal Color, No Rash Lymphatic: No Adenopathy EKG INTERPRETATION EKG Date: 03/22/17 Time: 13:15 Rhythm: NSR Rate (Beats/Min): 64 [place]: LAD-Left [place] Deviation P-Wave: Present QRS: RBBB (and LAFB) ST-T: Normal QT: Normal Comparison: No Change Course - Vital Signs Text/Narrative:: 87 years old w m with h/o CAD, came to the ed due to SOB last night, unable to sleep. No C/P no N/V/D. Pt is a poor historian. BP 113/67 pulse 67, temp 37F, Pulse ox 97%. PE: WNWD W M NAD Labs: BUN/CR elevated Imaging: CXR NAD, official report is pending Impression: Possible anxiety, resolved FINANCIAL ANALYSIS CONSULTANT Reexam: Pt was in his usual state of health, was ambulating fine on discharge with his SO. Plan: D/C to home Last Recorded V/S: Last Vital Signs Temp 36.3 C 03/22/17 14:48 Pulse 61 03/22/17 14:48 Resp 20 03/22/17 14:48 BP 133/49 L 03/22/17 14:48 Pulse Ox 97 03/22/17 14:48 - Orders/Labs/Meds Orders: Active Orders 24 hr Category Date Time Status EKG Documentation Completion [RC] ASDIRECTED Care 03/22/17 13:18 Active Chest 2V [CR] Stat Exams 03/22/17 13:16 Taken EKG 12 Lead [EK] Routine Ther 03/22/17 13:16 Ordered Labs: Laboratory Tests 03/22/17 03/22/17 03/22/17 Range/Units 13:30 13:30 13:30 WBC 8.9 (4.5-12.0) X10-3/uL RBC 3.88 L (4.30-5.75) x10(6)uL Hgb 11.9 (11.5-15.5) g/dL Hct 35.6 (30.0-51.3) % MCV 91.7 (80-96) fL MCH 30.6 (27.7-33.6) pg MCHC 33.3 (32.2-35.4) g/dL RDW 12.9 (11.5-15.5) % Plt Count 148 (125-369) X10(3)uL MPV 9.0 (7.4-10.4) fL Neut % (Auto) 75.7 (46-82) % Lymph % (Auto) 17.5 (13-37) % Villalba % (Auto) 5.9 (4-12) % Eos % (Auto) 1 (1.0-5.0) % Baso % (Auto) 0 (0-2) % Neut # (Auto) 6.7 (1.6-8.3) # Lymph # (Auto) 1.6 (0.6-5.0) # Villalba # (Auto) 0.5 (0.0-1.3) # Eos # (Auto) 0.1 (0.0-0.8) # Baso # (Auto) 0.0 (0.0-0.2) # PT 10.4 (8.7-11.1) INR 1.03 (0.89-1.13) D-Dimer, Quantitative (100-400) ng/mL Sodium 138 (135-145) mmol/L Potassium 4.1 (3.5-5.3) mmol/L Chloride 103 (100-110) mmol/L Carbon Dioxide 29 (23-29) mmol/L BUN 30 H D (8-23) mg/dL Creatinine 0.9 (0.6-1.3) mg/dL Est Cr Clr Drug Dosing 57.83 mL/min Estimated GFR (MDRD) > 60 (>60) BUN/Creatinine Ratio 33.3 H (9-20) Glucose 156 H (80-116) mg/dL Calcium 9.0 (8.6-10.2) mg/dL Troponin I (0.02-0.06) NG/ML Urine Color (YELLOW) Urine Appearance (CLEAR) Urine pH (5.0-6.5) Ur Specific Stacy (1.010-1.025) Urine Protein (NEGATIVE) mg/dL Urine Glucose (UA) (NEGATIVE) mg/dL Urine Ketones (NEGATIVE) mg/dL Urine Occult Blood (NEGATIVE) Urine Nitrite (NEGATIVE) Urine Bilirubin (NEGATIVE) Urine Urobilinogen (NEGATIVE) mg/dL Ur Leukocyte Esterase (NEGATIVE) Urine RBC (0) Urine WBC (0) Ur Squamous Epith Cells (NS,R,O) Calcium Oxalate Crystal (NS) Urine Bacteria (NS) Urine Mucus (NS) 03/22/17 03/22/17 03/22/17 Range/Units 13:30 13:30 14:19 WBC (4.5-12.0) X10-3/uL RBC (4.30-5.75) x10(6)uL Hgb (11.5-15.5) g/dL Hct (30.0-51.3) % MCV (80-96) fL MCH (27.7-33.6) pg MCHC (32.2-35.4) g/dL RDW (11.5-15.5) % Plt Count (125-369) X10(3)uL MPV (7.4-10.4) fL Neut % (Auto) (46-82) % Lymph % (Auto) (13-37) % Villalba % (Auto) (4-12) % Eos % (Auto) (1.0-5.0) % Baso % (Auto) (0-2) % Neut # (Auto) (1.6-8.3) # Lymph # (Auto) (0.6-5.0) # Villalba # (Auto) (0.0-1.3) # Eos # (Auto) (0.0-0.8) # Baso # (Auto) (0.0-0.2) # PT (8.7-11.1) INR (0.89-1.13) D-Dimer, Quantitative 359 (100-400) ng/mL Sodium (135-145) mmol/L Potassium (3.5-5.3) mmol/L Chloride (100-110) mmol/L Carbon Dioxide (23-29) mmol/L BUN (8-23) mg/dL Creatinine (0.6-1.3) mg/dL Est Cr Clr Drug Dosing mL/min Estimated GFR (MDRD) (>60) BUN/Creatinine Ratio (9-20) Glucose (80-116) mg/dL Calcium (8.6-10.2) mg/dL Troponin I < 0.01 L (0.02-0.06) NG/ML Urine Color Yellow (YELLOW) Urine Appearance Clear (CLEAR) Urine pH 6.0 (5.0-6.5) Ur Specific Stacy 1.015 (1.010-1.025) Urine Protein Negative (NEGATIVE) mg/dL Urine Glucose (UA) Normal (NEGATIVE) mg/dL Urine Ketones Negative (NEGATIVE) mg/dL Urine Occult Blood Negative (NEGATIVE) Urine Nitrite Negative (NEGATIVE) Urine Bilirubin Negative (NEGATIVE) Urine Urobilinogen Normal (NEGATIVE) mg/dL Ur Leukocyte Esterase Negative (NEGATIVE) Urine RBC 0-5 (0) Urine WBC 0-5 (0) Ur Squamous Epith Cells Rare (NS,R,O) Calcium Oxalate Crystal Rare H (NS) Urine Bacteria Few H (NS) Urine Mucus Occasional H (NS) Departure - Departure Time of Disposition: 14:47 Disposition: Home, Self-Care 01 Condition: Good Clinical Impression: Anxiety - Discharge Information Referrals: Stew Adkins MD [Primary Care Provider] - Forms: ED Department Discharge Additional Instructions: please continue your mediations, please follow up, please come back to the ed if your symptoms get worse acutely. - My Orders Last 24 Hours: My Active Orders 03/22/17 13:16 Chest 2V [CR] Stat EKG 12 Lead [EK] Routine 03/22/17 13:18 EKG Documentation Completion [RC] ASDIRECTED - Assessment/Plan Last 24 Hours: My Active Orders 03/22/17 13:16 Chest 2V [CR] Stat EKG 12 Lead [EK] Routine 03/22/17 13:18 EKG Documentation Completion [RC] ASDIRECTED
[2017-03-22 14:49] VITALS: BP 133/49
--- NOTE | 2017-03-24 11:29 | CR ---
INDICATION: Short of breath. CHEST: PA and lateral views of the chest 03/22/2017, compared with 11/23/2016 and 11/19/2016, revealed almost complete clearing of a previous pneumonia in the right upper lobe. Some residual changes that are present most likely represent fibrosis, but should be correlated clinically. A definite new acute process was not identified. Findings remain compatible with COPD, ASHD, with LVE, and osteoporosis, as well as DJD in the lower thoracic spine. Overlying EKG leads are noted. IMPRESSION: 1. ASHD with tortuous calcified aorta and left ventricular enlargement. 2. COPD. 3. Osteoporosis. 4. DJD lower thoracic spine. 5. Heavy markings in the upper middle lung field, superior hilar area on the right in an area of previous pneumonia could represent residual infiltrate - pneumonia, recurrent infiltrate - pneumonia, and/or pulmonary fibrosis - correlate clinically. MTDD
== END 2017-03-22 14:49 | disposition home or self-care (01) ==
LOC: FB.ED 13:01
DX: F41.9 Anxiety disorder, unspecified (principal); H54.7 Unspecified visual loss; I48.91 Unspecified atrial fibrillation; I25.10 Atherosclerotic heart disease of native coronary artery without angina pectoris; E78.00 Pure hypercholesterolemia, unspecified; I25.2 Old myocardial infarction; K21.9 Gastro-esophageal reflux disease without esophagitis; Z87.01 Personal history of pneumonia (recurrent); Z88.8 Allergy status to other drugs, medicaments and biological substances; Z88.0 Allergy status to penicillin; Z79.899 Other long term (current) drug therapy; Z88.5 Allergy status to narcotic agent; Z87.891 Personal history of nicotine dependence
CPT/HCPCS: 36415; 71020; 80048; 81001; 84484; 85025; 85379; 85610; 93005; 99284